=== PATIENT | female | born 1960 | race Two or more races ===

== ENCOUNTER 2016-12-18 20:56 | Emergency (ER) | payer SELFPAY ==
[~2016-12-18] VITALS: Ht 162.6 cm; Wt 72.6 kg
[2016-12-18 21:43] VITALS: BP 155/98
== END 2016-12-19 00:27 | disposition left against medical advice (07) ==
LOC: ER 20:56
DX: R06.02 Shortness of breath (principal); Z53.21 Procedure and treatment not carried out due to patient leaving prior to being seen by health care provider

== ENCOUNTER 2017-05-24 01:22 | Inpatient (IN) | payer MEDICAID ==
[~2017-05-24] VITALS: Ht 157.5 cm; Wt 74.7 kg
[2017-05-24 01:55] LABS: Basophils # (auto) 0.1 uL; Basophils % (auto) 0.9 % (0.0-2.0); Eosinophils # (auto) 0.8 uL; Eosinophils % (auto) 11.8 % (0.0-7.0); Hematocrit 39.4 % (36.0-46.0); Hemoglobin 13.3 g/dL (12.2-16.2); Lymphocytes # (auto) 1.3 uL; Lymphocytes % (auto) 19.6 % (10.0-50.0); Mean Corpuscular Hemoglobin 33.9 pg (28.0-32.0); Mean Corpuscular Hgb Conc. 33.6 g/dL (32.0-36.0); Mean Corpuscular Volume 100.8 fL (80.0-100.0); Monocytes # (auto) 0.5 uL; Monocytes % (auto) 7.1 % (0.0-12.0); Neutrophils % (auto) 60.6 % (37.0-80.0); Nucleated Red Blood Cells % 0.1 %; Platelet Count (auto) 291 10^3/uL (140-450); Red Blood Cells 3.91 10^6/uL (4.0-5.20); Red Cell Distribution Width 15.9 % (11.8-14.3); White Blood Cell 6.6 10^3/uL (4.4-10.8)
[2017-05-24] MEDS ORDERED: methylPREDNISolone SOD SUCC 125 MG/2 ML VL IV ONE (02:00)
[2017-05-24] MEDS ORDERED: IPRATROPIUM BROM 0.5 MG/2.5ML INH SOL NEB ONE (02:00)
[2017-05-24] MEDS ORDERED: ALBUTEROL SULF 2.5 MG/0.5ML(0.5%) NEB SOLN NEB ONE (02:00)
[2017-05-24] MEDS ORDERED: TERBUTALINE SULFATE 1 MG/ML 1ML VIAL SC ONE (02:00)
[2017-05-24 02:13] LABS: Alanine Aminotransferase 22 U/L (13-56); Albumin 3.6 g/dL (3.4-5.0); Anion Gap 11 (5-15); Aspartate Aminotransferase 26 U/L (15-37); BUN/Creatinine Ratio 12.3; Blood Urea Nitrogen 17 mg/dL (7-18); Calcium 8.8 mg/dL (8.5-10.1); Carbon Dioxide 24 mmol/L (21-32); Chloride 105 mmol/L (98-107); GFR African American 51 mL/min; GFR Non-African American 42 mL/min; Glucose 230 mg/dL (74-106); Magnesium 2.1 mg/dL (1.6-2.6); Potassium 3.3 mmol/L (3.5-5.1); Sodium 140 mmol/L (136-145)
[2017-05-24 02:17] LABS: Alkaline Phosphatase 109 U/L (45-117); Bilirubin, Total 0.6 mg/dL (0.2-1.0); Total Protein 7.5 g/dL (6.4-8.2)
[2017-05-24] MEDS ORDERED: POTASSIUM CHL 10% (20 MEQ/15ML) 15ml ORAL SOLN PO ONE (05:15)
[2017-05-24] MEDS ORDERED: NITROGLYCERIN 0.4 MG SL TAB SL PRN (06:15)
[2017-05-24] MEDS ORDERED: TEMAZEPAM 15 MG CAP PO PRN (06:15)
[2017-05-24] MEDS ORDERED: MORPHINE SULFATE 8mg/ml INJ SDV IV PRN (06:15)
[2017-05-24] MEDS ORDERED: ACETAMINOPHEN 325 MG TAB PO PRN (06:15)
[2017-05-24] MEDS ORDERED: ONDANSETRON HCL 4 MG/2 ML VIAL IV PRN (06:15)
[2017-05-24] MEDS: LEVOTHYROXINE SODIUM 50 MCG TAB PO SCH (07:21)
[2017-05-24] MEDS: FAMOTIDINE 20 MG TAB PO SCH ×2 (10:24→22:01)
[2017-05-24] MEDS: methylPREDNISolone SOD SUCC 125 MG/2 ML VL IV SCH ×2 (10:24→22:02)
[2017-05-24] MEDS: ENOXAPARIN SOD 40 MG/0.4 ML SYRINGE SC SCH (10:24)
[2017-05-24] MEDS: ALBUTEROL SULF 2.5 MG/0.5ML(0.5%) NEB SOLN NEB PRN ×3 (10:41→20:30)
[2017-05-24] MEDS: IPRATROPIUM BROM 0.5 MG/2.5ML INH SOL NEB PRN ×3 (10:41→20:30)
[2017-05-24 10:45] VITALS: BP 160/96
[2017-05-24] MEDS ORDERED: LEVO125T7 PO (13:40)
[2017-05-24 15:05] VITALS: BP 175/93
[2017-05-24 15:11] VITALS: BP 154/99
[2017-05-24] MEDS: cloNIDine HCL 0.1 MG TAB PO PRN (16:52)
[2017-05-24 17:25] VITALS: BP 146/97
[2017-05-24 22:00] VITALS: BP 104/63
[2017-05-24 22:53] VITALS: BP 122/60
[2017-05-25] VITALS (7 sets, daily range): BP systolic 120–150; BP diastolic 80–89
[2017-05-25] MEDS: LEVOTHYROXINE SODIUM 50 MCG TAB PO SCH (05:55)
[2017-05-25] MEDS: ALBUTEROL SULF 2.5 MG/0.5ML(0.5%) NEB SOLN NEB PRN ×3 (06:15→17:53)
[2017-05-25] MEDS: IPRATROPIUM BROM 0.5 MG/2.5ML INH SOL NEB PRN ×3 (06:15→17:53)
[2017-05-25 06:16] LABS: Basophils # (auto) 0.1 uL; Basophils % (auto) 0.5 % (0.0-2.0); Eosinophils # (auto) 0 uL; Hematocrit 42.8 % (36.0-46.0); Hemoglobin 14.4 g/dL (12.2-16.2); Lymphocytes # (auto) 0.7 uL; Lymphocytes % (auto) 3.9 % (10.0-50.0); Mean Corpuscular Hemoglobin 33.7 pg (28.0-32.0); Mean Corpuscular Hgb Conc. 33.7 g/dL (32.0-36.0); Mean Corpuscular Volume 99.8 fL (80.0-100.0); Monocytes # (auto) 0.3 uL; Monocytes % (auto) 1.8 % (0.0-12.0); Neutrophils % (auto) 93.8 % (37.0-80.0); Nucleated Red Blood Cells % 0.1 %; Platelet Count (auto) 328 10^3/uL (140-450); Red Blood Cells 4.29 10^6/uL (4.0-5.20); Red Cell Distribution Width 15.9 % (11.8-14.3); White Blood Cell 17.1 10^3/uL (4.4-10.8)
[2017-05-25 06:19] LABS: Albumin 3.8 g/dL (3.4-5.0); Calcium 9.9 mg/dL (8.5-10.1); Potassium 4.6 mmol/L (3.5-5.1)
[2017-05-25 06:21] LABS: BUN/Creatinine Ratio 12.7
[2017-05-25 06:23] LABS: Bilirubin, Total 0.7 mg/dL (0.2-1.0)
[2017-05-25] MEDS: FAMOTIDINE 20 MG TAB PO SCH ×2 (09:40→21:19)
[2017-05-25] MEDS: methylPREDNISolone SOD SUCC 125 MG/2 ML VL IV SCH ×2 (09:40→21:19)
[2017-05-25] MEDS: ENOXAPARIN SOD 40 MG/0.4 ML SYRINGE SC SCH (09:41)
[2017-05-25] MEDS: ALPRAZolam 0.25 MG TAB PO PRN (18:58)
[2017-05-26] MEDS: cloNIDine HCL 0.1 MG TAB PO PRN (04:14)
[2017-05-26] MEDS: LEVOTHYROXINE SODIUM 50 MCG TAB PO SCH (05:42)
[2017-05-26] MEDS: IPRATROPIUM BROM 0.5 MG/2.5ML INH SOL NEB PRN (07:10)
[2017-05-26] MEDS: ALBUTEROL SULF 2.5 MG/0.5ML(0.5%) NEB SOLN NEB PRN (07:10)
[2017-05-26 09:00] VITALS: BP 142/83
[2017-05-26] MEDS: FAMOTIDINE 20 MG TAB PO SCH (10:21)
[2017-05-26] MEDS: ENOXAPARIN SOD 40 MG/0.4 ML SYRINGE SC SCH (10:21)
[2017-05-26] MEDS: methylPREDNISolone SOD SUCC 125 MG/2 ML VL IV SCH (10:21)
[2017-05-26] MEDS ORDERED: predniSONE 20 MG TAB PO ONE (12:30)
[2017-05-26] MEDS ORDERED: ALBUTEROL SULF 2.5 MG/0.5ML(0.5%) NEB SOLN NEB PRN (12:45)
[2017-05-26 13:00] VITALS: BP 163/91
[2017-05-26] MEDS: ALPRAZolam 0.25 MG TAB PO PRN (13:32)
[2017-05-26 14:36] VITALS: BP 163/91
[2017-05-26] MEDS ORDERED: BUDESONIDE (INHALATION) 0.5 MG/2 ML NEB NEB SCH (22:00)
== END 2017-05-26 16:00 | disposition home or self-care (01) | DRG 141 ==
LOC: EDBD 01:22 → ER 01:25 → TELE 01:26 → TELE-CENTR 13:19
PROVIDERS: ADMIT Nurse Practitioner; ATTEND Internal Medicine
DX: J45.901 Unspecified asthma with (acute) exacerbation (principal); F41.9 Anxiety disorder, unspecified; R06.03 Acute respiratory distress; F15.90 Other stimulant use, unspecified, uncomplicated; Z88.5 Allergy status to narcotic agent; Z87.891 Personal history of nicotine dependence; Z80.0 Family history of malignant neoplasm of digestive organs; Z82.0 Family history of epilepsy and other diseases of the nervous system; Z82.49 Family history of ischemic heart disease and other diseases of the circulatory system; Z83.3 Family history of diabetes mellitus
CPT/HCPCS: 36415; 71045; 80053; 83735; 83880; 84484; 85025; 93005; 94640; 94761; 96372; 96374

== ENCOUNTER 2017-05-27 06:15 | Emergency (ER) | payer MEDICAID ==
[~2017-05-27] VITALS: Ht 157.5 cm; Wt 74.8 kg
[~2017-05-27 06:15] MED LIST: LEVO125T7 PO
[2017-05-27 07:06] LABS: Basophils # (auto) 0 uL; Basophils % (auto) 0.1 % (0.0-2.0); Eosinophils # (auto) 0 uL; Lymphocytes # (auto) 0.6 uL; Mean Corpuscular Volume 101.3 fL (80.0-100.0)
[2017-05-27 07:11] LABS: Hematocrit 43.6 % (36.0-46.0); Hemoglobin 14.6 g/dL (12.2-16.2); Mean Corpuscular Hemoglobin 33.8 pg (28.0-32.0); Mean Corpuscular Hgb Conc. 33.4 g/dL (32.0-36.0); Monocytes # (auto) 0.6 uL; Monocytes % (auto) 5.3 % (0.0-12.0); Neutrophils % (auto) 89.6 % (37.0-80.0); Nucleated Red Blood Cells % 0.1 %; Platelet Count (auto) 324 10^3/uL (140-450); Red Cell Distribution Width 16.9 % (11.8-14.3); White Blood Cell 12.3 10^3/uL (4.4-10.8)
[2017-05-27 07:24] VITALS: BP 156/94
[2017-05-27 07:26] LABS: Alanine Aminotransferase 32 U/L (13-56); Albumin 3.7 g/dL (3.4-5.0); Anion Gap 8 (5-15); Aspartate Aminotransferase 26 U/L (15-37); BUN/Creatinine Ratio 21.2; Blood Urea Nitrogen 22 mg/dL (7-18); Calcium 9.7 mg/dL (8.5-10.1); Carbon Dioxide 29 mmol/L (21-32); Chloride 103 mmol/L (98-107); GFR African American 70 mL/min; GFR Non-African American 58 mL/min; Glucose 112 mg/dL (74-106); Potassium 3.7 mmol/L (3.5-5.1); Sodium 140 mmol/L (136-145)
[2017-05-27 07:31] LABS: Alkaline Phosphatase 111 U/L (45-117); Bilirubin, Total 0.5 mg/dL (0.2-1.0); Total Protein 7.8 g/dL (6.4-8.2)
[2017-05-27 07:49] LABS: Urine Bacteria NONE SEEN /hpf (None Seen); Urine Blood Negative /uL (Negative); Urine Specific Gravity 1.018 (1.001-1.035); Urine WBC <1 /hpf (0 - 5)
[2017-05-27] MEDS ORDERED: cefTRIAXone 1GM/10ml IVPUSH 10 ML IV ONE (08:30)
== END 2017-05-27 09:58 | disposition home or self-care (01) ==
LOC: EDBD 06:15 → ER 06:21
DX: J45.909 Unspecified asthma, uncomplicated (principal); Z87.891 Personal history of nicotine dependence
CPT/HCPCS: 36415; 71045; 80053; 81001; 83880; 84484; 85025; 93005; 96374

== ENCOUNTER 2018-09-29 17:35 | Inpatient (IN) | payer MEDICAID ==
[~2018-09-29] VITALS: Ht 167.6 cm; Wt 88.6 kg
[2018-09-29] MEDS ORDERED: ALBUTEROL SULF 2.5 MG/0.5ML(0.5%) NEB SOLN HHN ONE (18:30)
[2018-09-29] MEDS ORDERED: IPRATROPIUM BROM 0.5 MG/2.5ML INH SOL HHN ONE (18:30)
[2018-09-29] MEDS ORDERED: methylPREDNISolone SOD SUCC 125 MG/2 ML VL IV ONE (18:30)
[2018-09-29 19:18] LABS: Basophils # (auto) 0.1 uL; Basophils % (auto) 0.7 % (0.0-2.0); Eosinophils # (auto) 0.4 uL; Eosinophils % (auto) 4.2 % (0.0-7.0); Hematocrit 40.9 % (36.0-46.0); Hemoglobin 13.9 g/dL (12.2-16.2); Lymphocytes % (auto) 10.3 % (10.0-50.0); Mean Corpuscular Hemoglobin 33.6 pg (28.0-32.0); Mean Corpuscular Hgb Conc. 34.1 g/dL (32.0-36.0); Mean Corpuscular Volume 98.7 fL (80.0-100.0); Monocytes # (auto) 0.6 uL; Neutrophils % (auto) 78.8 % (37.0-80.0); Nucleated Red Blood Cells % 0.1 %; Platelet Count (auto) 324 10^3/uL (140-450); Red Blood Cells 4.15 10^6/uL (4.0-5.20); Red Cell Distribution Width 15.2 % (11.8-14.3); White Blood Cell 10.1 10^3/uL (4.4-10.8)
[2018-09-29 19:34] LABS: Anion Gap 9 (5-15); Blood Urea Nitrogen 15 mg/dL (7-18); Calcium 9.5 mg/dL (8.5-10.1); Carbon Dioxide 24 mmol/L (21-32); Chloride 106 mmol/L (98-107); Glucose 140 mg/dL (74-106); Magnesium 2.2 mg/dL (1.6-2.6); Potassium 3.6 mmol/L (3.5-5.1); Sodium 139 mmol/L (136-145)
[2018-09-29 19:36] LABS: Alanine Aminotransferase 25 U/L (13-56); Aspartate Aminotransferase 28 U/L (15-37); BUN/Creatinine Ratio 10.8; GFR African American 50 mL/min; GFR Non-African American 41 mL/min
[2018-09-29 19:41] LABS: Alkaline Phosphatase 103 U/L (45-117); Total Protein 7.6 g/dL (6.4-8.2)
[2018-09-29] MEDS ORDERED: ALBUTEROL SULF 2.5 MG/0.5ML(0.5%) NEB SOLN NEB ONE (22:45)
[2018-09-29] MEDS ORDERED: IPRATROPIUM BROM 0.5 MG/2.5ML INH SOL NEB ONE (22:45)
[2018-09-30] MEDS ORDERED: ONDANSETRON HCL 4 MG/2 ML VIAL IV PRN (03:45)
[2018-09-30] MEDS ORDERED: TEMAZEPAM 15 MG CAP PO PRN (03:45)
[2018-09-30] MEDS ORDERED: ACETAMINOPHEN 325 MG TAB PO PRN (03:45)
[2018-09-30] MEDS ORDERED: cloNIDine HCL 0.1 MG TAB PO PRN ×2 (03:45→06:15)
[2018-09-30] MEDS ORDERED: MORPHINE SULF INJ 2 MG/ML SYRINGE 1ML IV PRN (03:45)
[2018-09-30] MEDS ORDERED: NITROGLYCERIN 0.4 MG SL TAB SL PRN (03:45)
[2018-09-30] MEDS: IPRATROPIUM BROM 0.5 MG/2.5ML INH SOL NEB SCH ×3 (05:50→18:56)
[2018-09-30] MEDS: ALBUTEROL SULF 2.5 MG/0.5ML(0.5%) NEB SOLN NEB SCH ×3 (05:50→18:56)
[2018-09-30] MEDS: LEVOTHYROXINE SODIUM 50 MCG TAB PO SCH (07:08)
[2018-09-30] MEDS ORDERED: traMADol HCL 50 MG TAB PO PRN (10:45)
[2018-09-30 11:05] LABS: Basophils # (auto) 0 uL; Basophils % (auto) 0.2 % (0.0-2.0); Eosinophils # (auto) 0 uL; Hematocrit 41.8 % (36.0-46.0); Hemoglobin 13.9 g/dL (12.2-16.2); Lymphocytes # (auto) 0.5 uL; Lymphocytes % (auto) 5.7 % (10.0-50.0); Mean Corpuscular Hemoglobin 33.1 pg (28.0-32.0); Mean Corpuscular Hgb Conc. 33.2 g/dL (32.0-36.0); Mean Corpuscular Volume 99.6 fL (80.0-100.0); Monocytes # (auto) 0.1 uL; Monocytes % (auto) 1.2 % (0.0-12.0); Neutrophils # (auto) 8.2 uL; Neutrophils % (auto) 92.9 % (37.0-80.0); Platelet Count (auto) 322 10^3/uL (140-450); White Blood Cell 8.8 10^3/uL (4.4-10.8)
[2018-09-30] MEDS: FAMOTIDINE 20 MG TAB PO SCH ×2 (11:20→22:22)
[2018-09-30 11:32] LABS: BUN/Creatinine Ratio 11.2; Calcium 9.8 mg/dL (8.5-10.1); Potassium 4.3 mmol/L (3.5-5.1)
--- NOTE | 2018-09-30 13:03 | NUR ---
MS admit from [facility] admitted to tele/MS after SBAR received. Patient oriented to CHEY VELAZQUEZ RN primary RN, unit, room, bed, and unit policies regarding patient care and visiting hours. Patient weighed by bedscale and encouraged to call if they need something. All questions and concerns addressed, patient verbalized understanding. Note:
[2018-09-30 13:13] VITALS: BP 164/82
[2018-09-30] MEDS: methylPREDNISolone SOD SUCC 40 MG/ML VL IV SCH ×2 (14:14→22:22)
[2018-09-30 16:43] VITALS: BP 173/105
[2018-09-30] MEDS: BUDESONIDE (INHALATION) 0.5 MG/2 ML NEB NEB SCH (18:56)
--- NOTE | 2018-09-30 20:40 | NUR ---
ROOM SMELLS LIKE CIGARETTE SMOKE NURSE COIN MACHINE COLLECTOR SUPERVISOR NOTIFIED THAT ROOM SMELLS LIKE CIGARETTE SMOKE. PATIENT DENIES SMOKING IN THE ROOM. PATIENT AGREED TO INSPECTION OF HER BELONGINGS. A CIGARETTE THAT HAD BEEN PREVIOUSLY LIGHTED AND A RESISTOR COATER WERE FOUND IN HER SWEATER POCKET AND A BOX OF CIGARETTES IN HER BAG. CHARGE NURSE DAISY WAS NOTIFIED AND CIGARETTES AND RESISTOR COATER WERE REMOVED FROM THE PATIENT ROOM. EDUCATED PATIENT REGARDING HAZARDS OF SMOKING AROUND OXYGEN AND IN HOSPITAL. AND EDUCATED HER REGARDING HOSPITAL POLICY. PATIENT AGREED TO BE COMPLIANT.
[2018-09-30 22:00] VITALS: BP 112/63
[2018-10-01] MEDS: ALBUTEROL SULF 2.5 MG/0.5ML(0.5%) NEB SOLN NEB SCH ×5 (00:27→23:06)
[2018-10-01] MEDS: IPRATROPIUM BROM 0.5 MG/2.5ML INH SOL NEB SCH ×5 (00:28→23:06)
--- NOTE | 2018-10-01 00:30 | NUR ---
REPORT GIVEN BY MANOJ SAEED, PT. AWAKE, ALERT AND ORIENTED, NO C/O PAIN, NO SON. TO CONTINUE PT. CARE.
--- NOTE | 2018-10-01 00:50 | NUR ---
ENDORSED PATIENT CARE TO NURSE SHADY ARANDA.
[2018-10-01 04:37] VITALS: BP 127/67
[2018-10-01] MEDS: methylPREDNISolone SOD SUCC 40 MG/ML VL IV SCH ×3 (05:33→21:10)
[2018-10-01] MEDS: BUDESONIDE (INHALATION) 0.5 MG/2 ML NEB NEB SCH ×2 (05:54→17:49)
[2018-10-01] MEDS: LEVOTHYROXINE SODIUM 50 MCG TAB PO SCH (06:02)
[2018-10-01 06:56] LABS: Basophils # (auto) 0 uL; Eosinophils # (auto) 0 uL; Hematocrit 40.9 % (36.0-46.0); Hemoglobin 13.6 g/dL (12.2-16.2); Lymphocytes # (auto) 0.6 uL; Lymphocytes % (auto) 5.2 % (10.0-50.0); Mean Corpuscular Hemoglobin 33.3 pg (28.0-32.0); Mean Corpuscular Hgb Conc. 33.2 g/dL (32.0-36.0); Mean Corpuscular Volume 100.1 fL (80.0-100.0); Monocytes # (auto) 0.3 uL; Monocytes % (auto) 2.9 % (0.0-12.0); Neutrophils # (auto) 10.6 uL; Neutrophils % (auto) 91.9 % (37.0-80.0); Platelet Count (auto) 318 10^3/uL (140-450); Red Blood Cells 4.09 10^6/uL (4.0-5.20); Red Cell Distribution Width 15.1 % (11.8-14.3); White Blood Cell 11.5 10^3/uL (4.4-10.8)
[2018-10-01 07:13] LABS: Calcium 9.7 mg/dL (8.5-10.1); Potassium 4.2 mmol/L (3.5-5.1)
[2018-10-01 07:17] LABS: BUN/Creatinine Ratio 14.8
[2018-10-01 09:03] VITALS: BP 126/76
[2018-10-01] MEDS: FAMOTIDINE 20 MG TAB PO SCH ×2 (09:32→21:10)
[2018-10-01 13:00] VITALS: BP 139/68
[2018-10-01 17:15] VITALS: BP 128/65
--- NOTE | 2018-10-01 19:30 | NUR ---
Opening shift notes Patient in bed alert and oriented x 4, verbally coherent, able to make needs known. Patient denies pain and discomfort at this time. Plan of care discussed, patient verbalized understanding. All needs attended, will continue to monitor.
[2018-10-01 21:46] VITALS: BP 152/88
[2018-10-02 04:45] VITALS: BP 131/71
[2018-10-02] MEDS: methylPREDNISolone SOD SUCC 40 MG/ML VL IV SCH (06:15)
[2018-10-02] MEDS: LEVOTHYROXINE SODIUM 50 MCG TAB PO SCH (06:17)
[2018-10-02] MEDS: ALBUTEROL SULF 2.5 MG/0.5ML(0.5%) NEB SOLN NEB SCH (06:28)
[2018-10-02] MEDS: IPRATROPIUM BROM 0.5 MG/2.5ML INH SOL NEB SCH (06:28)
[2018-10-02 09:09] VITALS: BP 136/69
[2018-10-02 10:22] VITALS: BP 154/98
[2018-10-02] MEDS: FAMOTIDINE 20 MG TAB PO SCH (10:26)
== END 2018-10-02 11:40 | disposition home or self-care (01) | DRG 140 ==
LOC: EDBD 17:35 → ER 17:35 → TELE 17:36 → TELE-CENTR 09-30 13:07 → CENTRAL 09-30 13:08
PROVIDERS: ADMIT Nurse Practitioner; ATTEND Internal Medicine
DX: J44.1 Chronic obstructive pulmonary disease with (acute) exacerbation (principal); J96.21 Acute and chronic respiratory failure with hypoxia; N18.3 Chronic kidney disease, stage 3 (moderate); E66.9 Obesity, unspecified; E03.9 Hypothyroidism, unspecified; J98.4 Other disorders of lung; I12.9 Hypertensive chronic kidney disease with stage 1 through stage 4 chronic kidney disease, or unspecified chronic kidney disease; F15.10 Other stimulant abuse, uncomplicated; F17.210 Nicotine dependence, cigarettes, uncomplicated; Z82.0 Family history of epilepsy and other diseases of the nervous system; Z82.49 Family history of ischemic heart disease and other diseases of the circulatory system; Z83.3 Family history of diabetes mellitus; Z68.31 Body mass index [BMI] 31.0-31.9, adult; Z88.5 Allergy status to narcotic agent
CPT/HCPCS: 36415; 36600; 71046; 80048; 80053; 82805; 83735; 83880; 84484; 85025; 93005; 94640; 94761; 96374; 96375; G0378

== ENCOUNTER 2018-10-30 13:31 | Inpatient (IN) | payer MEDICAID ==
[~2018-10-30] VITALS: Ht 162.6 cm; Wt 90.0 kg
[~2018-10-30 13:31] MED LIST changes: +DOXYCYCLINE 100MG/250ML 250 ML IV SCH
[2018-10-30 14:57] LABS: Basophils # (auto) 0.1 uL; Basophils % (auto) 1.5 % (0.0-2.0); Eosinophils # (auto) 0.8 uL; Eosinophils % (auto) 13.4 % (0.0-7.0); Hematocrit 38.2 % (36.0-46.0); Hemoglobin 12.8 g/dL (12.2-16.2); Lymphocytes # (auto) 1.1 uL; Lymphocytes % (auto) 19.6 % (10.0-50.0); Mean Corpuscular Hemoglobin 33.2 pg (28.0-32.0); Mean Corpuscular Hgb Conc. 33.4 g/dL (32.0-36.0); Mean Corpuscular Volume 99.3 fL (80.0-100.0); Monocytes # (auto) 0.6 uL; Monocytes % (auto) 9.8 % (0.0-12.0); Neutrophils # (auto) 3.2 uL; Neutrophils % (auto) 55.7 % (37.0-80.0); Platelet Count (auto) 311 10^3/uL (140-450); Red Blood Cells 3.85 10^6/uL (4.0-5.20); Red Cell Distribution Width 15.3 % (11.8-14.3); White Blood Cell 5.8 10^3/uL (4.4-10.8)
[2018-10-30 15:18] LABS: Alanine Aminotransferase 17 U/L (13-56); Albumin 3.5 g/dL (3.4-5.0); Anion Gap 6 (5-15); Aspartate Aminotransferase 17 U/L (15-37); BUN/Creatinine Ratio 10.8; Blood Urea Nitrogen 12 mg/dL (7-18); Calcium 8.8 mg/dL (8.5-10.1); Carbon Dioxide 26 mmol/L (21-32); Chloride 108 mmol/L (98-107); GFR African American 64 mL/min; GFR Non-African American 53 mL/min; Glucose 93 mg/dL (74-106); Potassium 4.2 mmol/L (3.5-5.1); Sodium 140 mmol/L (136-145)
[2018-10-30 15:22] LABS: Alkaline Phosphatase 80 U/L (45-117); Bilirubin, Total 0.9 mg/dL (0.2-1.0); Total Protein 6.6 g/dL (6.4-8.2)
[2018-10-30] MEDS ORDERED: IPRATROPIUM BROM 0.5 MG/2.5ML INH SOL NEB ONE (16:00)
[2018-10-30] MEDS ORDERED: ALBUTEROL SULF 2.5 MG/0.5ML(0.5%) NEB SOLN NEB ONE ×2 (16:00→18:30)
[2018-10-30] MEDS ORDERED: methylPREDNISolone SOD SUCC 125 MG/2 ML VL IV ONE (16:00)
[2018-10-30 16:12] LABS: Urine Bacteria NONE SEEN /hpf (None Seen); Urine Blood Negative /uL (Negative); Urine Mucus FEW (None Seen); Urine Specific Gravity 1.019 (1.001-1.035); Urine WBC 1 /hpf (0 - 5)
[2018-10-30] MEDS ORDERED: cefTRIAXone 1GM/50ML D5W 50 ML IV ONE ×2 (18:30→18:47)
[2018-10-30] MEDS ORDERED: ACETAMINOPHEN 500 MG TAB PO PRN (18:45)
[2018-10-30] MEDS ORDERED: ALBUTEROL SULF 2.5 MG/0.5ML(0.5%) NEB SOLN NEB PRN (18:45)
[2018-10-30] MEDS ORDERED: MORPHINE SULF INJ 2 MG/ML SYRINGE 1ML IV PRN (18:45)
[2018-10-30] MEDS ORDERED: NITROGLYCERIN 0.4 MG SL TAB SL PRN (18:45)
[2018-10-30] MEDS ORDERED: traMADol HCL 50 MG TAB PO PRN (18:45)
[2018-10-30] MEDS ORDERED: TEMAZEPAM 15 MG CAP PO PRN (18:45)
[2018-10-30] MEDS ORDERED: PROMETHAZINE HCL 25 MG/ML 1ML IV PRN (18:45)
[2018-10-30] MEDS ORDERED: ALBUTEROL SULF 2.5 MG/0.5ML(0.5%) NEB SOLN ONE (18:45)
[2018-10-30] MEDS ORDERED: DOXYCYCLINE 100MG/250ML 250 ML IV SCH (18:45)
[2018-10-30] MEDS ORDERED: LACTULOSE 20Gm/30ML SOLN PO PRN (18:45)
[2018-10-30 19:35] VITALS: BP 161/101
--- NOTE | 2018-10-30 19:40 | NUR ---
Telemetry admit from [facility] admitted to Telemetry unit. Patient oriented to KYRIE LIZAMA OCA, primary RN, unit, room, bed, and unit policies regarding patient care and visiting hours. Patient now on continuous telemetry monitoring, tele box #55 and telemetry reading on arrival to unit is sinus rhythm 90. Patient placed on bedside oxygen, weighed by bedscale and encouraged to call if they need something. All questions and concerns addressed, patient verbalized understanding. Bed in lowest locked position, call light within reach, side rails up x2, fall precautions in place. Will continue to monitor Q1hr and PRN.
--- NOTE | 2018-10-30 20:00 | NUR ---
Hospitalist paged ANN Tovar called regarding high BP 161/101 and a request for a diet order. Waiting for call back. Continue care.
[2018-10-30 20:01] VITALS: BP 161/101
[2018-10-30] MEDS ORDERED: CHOL20007 PO (20:08)
[2018-10-30] MEDS ORDERED: ALBUAER3 IN (20:09)
[2018-10-30] MEDS: SODIUM CHLORIDE 0.9% 1,000 ML IV SCH (20:13)
[2018-10-30] MEDS: DOXYCYCLINE 100MG/250ML 250 ML IV SCH (20:23)
[2018-10-30 20:26] VITALS: BP 161/101
--- NOTE | 2018-10-30 20:40 | NUR ---
Hospitalist returned call ANN Tovar returned call, updated on patient status and reason for call, new orders received for a regular diet. No new orders for BP meds as patient denies any history of high blood pressure, just continue to monitor. Will continue care.
[2018-10-30] MEDS: methylPREDNISolone SOD SUCC 40 MG/ML VL IV SCH (23:50)
[2018-10-31] MEDS: ALBUTEROL SULF 2.5 MG/0.5ML(0.5%) NEB SOLN NEB SCH ×4 (00:30→18:26)
[2018-10-31] MEDS: IPRATROPIUM BROM 0.5 MG/2.5ML INH SOL NEB SCH ×4 (00:31→18:26)
--- NOTE | 2018-10-31 04:37 | NUR ---
Received patient from Seema ARANDA, CASSANDRAAR received. Patient is resting in bed, no complaints of pain, distress, or SOB.
[2018-10-31 05:38] VITALS: BP 136/75
[2018-10-31] MEDS: methylPREDNISolone SOD SUCC 40 MG/ML VL IV SCH ×4 (06:01→23:50)
[2018-10-31] MEDS: LEVOTHYROXINE SODIUM 50 MCG TAB PO SCH (06:01)
--- NOTE | 2018-10-31 07:20 | NUR ---
PT AWAKE, ALERT, ORIENTED x4, COOPERATIVE OF CARE. DENIES PAIN AT MOMENT. PT CURRENTLY ON 3LNC, DENIES CP, SOB, PALPITATIONS. IV PATENT AND INFUSING WELL TO LAC#20. BED LOCKED AND IN LOWEST POSITION, CALL LIGHT WITHIN REACH. WILL CONTINUE TO MONITOR.
[2018-10-31 08:00] VITALS: BP 147/80
[2018-10-31] MEDS: DOXYCYCLINE 100MG/250ML 250 ML IV SCH ×2 (08:58→20:47)
[2018-10-31] MEDS: ENOXAPARIN SOD 40 MG/0.4 ML SYRINGE SC SCH (08:58)
[2018-10-31] MEDS: PANTOPRAZOLE 40 MG TAB PO SCH (08:58)
[2018-10-31] MEDS: SODIUM CHLORIDE 0.9% 1,000 ML IV SCH ×2 (09:05→21:14)
--- NOTE | 2018-10-31 12:50 | NUR ---
DR. ANDINO IN TO SEE PT. DISCUSSING PLAN OF CARE. PT IN AGREEMENT WITH PLAN.
[2018-10-31 13:00] VITALS: BP 154/89
[2018-10-31 16:00] VITALS: BP 127/68
--- NOTE | 2018-10-31 19:30 | NUR ---
Opening Shift Note Assumed care of patient, awake and alert x4. No S/S of distress/SOB or pain. Bed is in lowest position, side rails up x2, brakes are locked, call light is within reach. Instructed on POC and to call for assist PRN. All questions and concerns answered, will continue to monitor for changes Q1hr and PRN.
--- NOTE | 2018-10-31 21:20 | NUR ---
IV removal from LAC due to leaking IV DC'd with clean sterile technique, catheter fully intact. Pressure dressing applied to site. Patient tolerated well.
--- NOTE | 2018-10-31 21:25 | NUR ---
IV insertion IV access obtained, via clean sterile technique by inserting 22 gauge catheter at th left hand after 1 attempt(s). IV secured properly. No trauma to site. Patient tolerated well.
[2018-10-31 23:54] VITALS: BP 151/92
[2018-11-01] MEDS: IPRATROPIUM BROM 0.5 MG/2.5ML INH SOL NEB SCH ×3 (00:21→12:05)
[2018-11-01] MEDS: ALBUTEROL SULF 2.5 MG/0.5ML(0.5%) NEB SOLN NEB SCH ×3 (00:21→12:05)
[2018-11-01 05:07] VITALS: BP 143/86
[2018-11-01] MEDS: methylPREDNISolone SOD SUCC 40 MG/ML VL IV SCH ×2 (05:42→11:53)
[2018-11-01] MEDS: LEVOTHYROXINE SODIUM 50 MCG TAB PO SCH (06:13)
[2018-11-01 06:15] LABS: Basophils # (auto) 0 uL; Eosinophils # (auto) 0 uL; Hematocrit 40.6 % (36.0-46.0); Hemoglobin 13.1 g/dL (12.2-16.2); Lymphocytes # (auto) 0.5 uL; Lymphocytes % (auto) 3.3 % (10.0-50.0); Mean Corpuscular Hemoglobin 32.2 pg (28.0-32.0); Mean Corpuscular Hgb Conc. 32.3 g/dL (32.0-36.0); Mean Corpuscular Volume 99.6 fL (80.0-100.0); Monocytes # (auto) 0.4 uL; Monocytes % (auto) 2.6 % (0.0-12.0); Neutrophils # (auto) 15.3 uL; Neutrophils % (auto) 94.1 % (37.0-80.0); Nucleated Red Blood Cells % 0.1 %; Platelet Count (auto) 339 10^3/uL (140-450); Red Blood Cells 4.08 10^6/uL (4.0-5.20); White Blood Cell 16.3 10^3/uL (4.4-10.8)
[2018-11-01 06:33] LABS: Anion Gap 6 (5-15); BUN/Creatinine Ratio 17.7; Blood Urea Nitrogen 20 mg/dL (7-18); Calcium 9.1 mg/dL (8.5-10.1); Carbon Dioxide 24 mmol/L (21-32); Chloride 110 mmol/L (98-107); GFR African American 63 mL/min; GFR Non-African American 52 mL/min; Glucose 140 mg/dL (74-106); Potassium 4.3 mmol/L (3.5-5.1); Sodium 140 mmol/L (136-145)
--- NOTE | 2018-11-01 07:10 | NUR ---
PT AWAKE, ALERT, ORIENTEDx4 COOPERATIVE OF CARE, DENIES DISCOMFORT AT MOMENT. PT ON 3LNC. DENIES CP, SOB. IV INFUSING WELL TO LEFT HAND. BED LOCKED AND IN LOWEST POSITION, CALL LIGHT WITHIN REACH.
[2018-11-01 09:00] VITALS: BP 160/87
[2018-11-01] MEDS: ENOXAPARIN SOD 40 MG/0.4 ML SYRINGE SC SCH (09:29)
[2018-11-01] MEDS: PANTOPRAZOLE 40 MG TAB PO SCH (09:29)
[2018-11-01] MEDS: DOXYCYCLINE 100MG/250ML 250 ML IV SCH (09:29)
[2018-11-01] MEDS: SODIUM CHLORIDE 0.9% 1,000 ML IV SCH (09:30)
[2018-11-01] MEDS ORDERED: amLODIPine BESYLATE 5 MG TAB PO SCH (10:00)
--- NOTE | 2018-11-01 10:00 | NUR ---
DR. ANDINO AT BEDSIDE, EVALUATING PT. MADE AWARE OF BP 163/104 MD WILL ORDER BP MEDICATIONS.
[2018-11-01] MEDS ORDERED: cloNIDine HCL 0.1 MG TAB PO PRN (10:15)
[2018-11-01 12:03] VITALS: BP 133/79
[2018-11-01 13:00] VITALS: BP 133/79
[2018-11-01 14:00] VITALS: BP 133/79
--- NOTE | 2018-11-01 14:57 | NUR ---
DISCHARGE INSTRUCTIONS GIVEN TO PT. PT VERBALIZED UNDERSTANDING FOR FOLLOW UP APPOINTMENT WITH PRIMARY CARE PROVIDER AND PRESCRIPTION ORDERS. EDUCATIONAL MATERIAL PROVIDED ON NEW PRESCRIPTION ORDERS, QUESTIONS AND CONCERNS ADDRESSED. IV CATHETER DC'D, CATHETER INTACT NO PHLEBITIS. TELE BOX REMOVED AND RETURNED TO MONITORING DEPT. PT AWAITING TRANSPORTATION AT MOMENT. INSTRUCTED TO CALL WHEN TRANSPORTATION ARRIVES.
--- NOTE | 2018-11-01 15:21 | NUR ---
PT SAFELY ESCORTED OUT OF UNIT VIA WHEELCHAIR. ACCOMPANIED BY FAMILY MEMBER.
== END 2018-11-01 17:09 | disposition home or self-care (01) | DRG 140 ==
LOC: ER 13:31 → EDBD 13:31 → TELE 13:32 → ER 17:49 → TELE-WESTW 19:40
PROVIDERS: ADMIT Internal Medicine; ATTEND Internal Medicine
DX: J44.1 Chronic obstructive pulmonary disease with (acute) exacerbation (principal); J18.9 Pneumonia, unspecified organism; Z99.81 Dependence on supplemental oxygen; J45.901 Unspecified asthma with (acute) exacerbation; J44.0 Chronic obstructive pulmonary disease with (acute) lower respiratory infection; N18.3 Chronic kidney disease, stage 3 (moderate); J20.9 Acute bronchitis, unspecified; R06.03 Acute respiratory distress; E03.9 Hypothyroidism, unspecified; I10 Essential (primary) hypertension; I12.9 Hypertensive chronic kidney disease with stage 1 through stage 4 chronic kidney disease, or unspecified chronic kidney disease; F17.210 Nicotine dependence, cigarettes, uncomplicated; Z82.0 Family history of epilepsy and other diseases of the nervous system; Z91.14 Patient's other noncompliance with medication regimen; Z88.5 Allergy status to narcotic agent
CPT/HCPCS: 36415; 71045; 80048; 80053; 81001; 83880; 84443; 84484; 85025; 87070; 87081; 87205; 93005; 94640; G0378; J0696; J3490

== ENCOUNTER 2019-08-08 07:34 | Inpatient (IN) | payer MEDICAID ==
[~2019-08-08] VITALS: Ht 167.6 cm; Wt 77.2 kg
[2019-08-08] VITALS (32 sets, daily range): BP systolic 97–142; BP diastolic 55–93
[~2019-08-08 07:34] MED LIST changes: +ALBUAER3 IN; +CHOL20007 PO; -DOXYCYCLINE 100MG/250ML 250 ML IV SCH
[2019-08-08] MEDS ORDERED: ALBUTEROL SULF 2.5 MG/0.5ML(0.5%) NEB SOLN ONE (07:54)
[2019-08-08] MEDS ORDERED: methylPREDNISolone SOD SUCC 125 MG/2 ML VL ONE ×2 (07:54→07:56)
[2019-08-08] MEDS ORDERED: LORazepam 2MG/ML-1ML VIAL ONE (08:10)
[2019-08-08] MEDS ORDERED: methylPREDNISolone SOD SUCC 125 MG/2 ML VL IV ONE ×2 (08:15→14:30)
[2019-08-08] MEDS ORDERED: LORazepam 2MG/ML-1ML VIAL IV ONE ×2 (08:15)
[2019-08-08 08:28] LABS: Basophils # (auto) 0.1 10 ^3/uL (0-0.2); Basophils % (auto) 0.6 % (0.0-2.0); Eosinophils # (auto) 0.5 10 ^3/uL (0-0.8); Eosinophils % (auto) 5.7 % (0.0-7.0); Hematocrit 44.9 % (36.0-46.0); Hemoglobin 14.6 g/dL (12.2-16.2); Lymphocytes # (auto) 1.8 10 ^3/uL (0.4-5.4); Lymphocytes % (auto) 19.5 % (10.0-50.0); Mean Corpuscular Hemoglobin 33.1 pg (28.0-32.0); Mean Corpuscular Hgb Conc. 32.6 g/dL (32.0-36.0); Mean Corpuscular Volume 101.5 fL (80.0-100.0); Monocytes # (auto) 0.5 10 ^3/uL (0-1.3); Monocytes % (auto) 5.7 % (0.0-12.0); Neutrophils # (auto) 6.5 10 ^3/uL (1.6-8.6); Neutrophils % (auto) 68.5 % (37.0-80.0); Platelet Count (auto) 332 10^3/uL (140-450); Red Blood Cells 4.43 10^6/uL (4.0-5.20); Red Cell Distribution Width 14.8 % (11.8-14.3); White Blood Cell 9.4 10^3/uL (4.4-10.8)
[2019-08-08] MEDS ORDERED: MIDAZOLAM HCL 5 MG/ML-1ML VIAL IV ONE (08:30)
[2019-08-08] MEDS ORDERED: fentaNYL CITRATE 100 MCG/2 ML VL ONE (08:31)
[2019-08-08] MEDS ORDERED: fentaNYL CITRATE 100 MCG/2 ML VL IV ONE (08:31)
[2019-08-08] MEDS: MIDAZOLAM DRIP 50 mg/50mL 50 ML IV SCH ×2 (08:35→16:45)
[2019-08-08] MEDS: fentaNYL Drip 2500mCg/250mlNS 250 ML IV SCH (09:00)
[2019-08-08 09:03] LABS: Anion Gap 7 (5-15); Blood Urea Nitrogen 14 mg/dL (7-18); Carbon Dioxide 29 mmol/L (21-32); Chloride 102 mmol/L (98-107); Glucose 273 mg/dL (74-106); Potassium 3.9 mmol/L (3.5-5.1); Sodium 138 mmol/L (136-145)
[2019-08-08 09:07] LABS: Alanine Aminotransferase 27 U/L (13-56); Alkaline Phosphatase 130 U/L (45-117); Aspartate Aminotransferase 38 U/L (15-37); BUN/Creatinine Ratio 9.6; Bilirubin, Total 0.7 mg/dL (0.2-1.0); GFR African American 47 mL/min; GFR Non-African American 39 mL/min; Total Protein 7.9 g/dL (6.4-8.2)
[2019-08-08 09:16] LABS: Blood Alcohol < 3.0 mg/dL (0-5)
[2019-08-08] MEDS: ALBUTEROL SULF 2.5 MG/0.5ML(0.5%) NEB SOLN NEB SCH ×4 (10:00→21:26)
[2019-08-08] MEDS: IPRATROPIUM BROM 0.5 MG/2.5ML INH SOL NEB SCH ×4 (10:00→21:25)
[2019-08-08] MEDS: NOREPINEPHRINE 8 MG/250ML KIT 250 ML IV SCH (10:43)
[2019-08-08] MEDS ORDERED: PROPOFOL 100 ML IV ONE (13:00)
[2019-08-08] MEDS: PROPOFOL 100 ML IV SCH (13:18)
[2019-08-08] MEDS ORDERED: NITROGLYCERIN 0.4 MG SL TAB SL PRN (13:30)
[2019-08-08] MEDS ORDERED: SODIUM CHLORIDE 0.9% 1,000 ML IV ONE (13:30)
[2019-08-08] MEDS ORDERED: MORPHINE SULF INJ 2 MG/ML SYRINGE 1ML IV PRN (13:30)
[2019-08-08] MEDS ORDERED: DEXTROSE (50%) 50ML SYRG IV PRN (14:00)
[2019-08-08] MEDS: FAMOTIDINE (10MG/ML) 2ML VL IV SCH (14:15)
[2019-08-08 14:16] LABS: Urine Amorphous Crystal FEW /hpf (None Seen); Urine Bacteria FEW /hpf (None Seen); Urine Blood 2+ /uL (Negative); Urine Mucus FEW (None Seen); Urine Specific Gravity 1.021 (1.001-1.035); Urine WBC 20 /hpf (0 - 5); Urine WBC Clumps PRESENT /hpf (None Seen)
[2019-08-08] MEDS ORDERED: ALBUTEROL SULF 2.5 MG/0.5ML(0.5%) NEB SOLN NEB ONE ×2 (14:30→14:45)
[2019-08-08 14:31] LABS: Alcohol, Urine < 3.0 mg/dL (0-10); Amphetamine Screen, Urine POSITIVE (NEGATIVE); Barbiturate Scree,Urine NEGATIVE (NEGATIVE); Benzodiazephine Screen, Urine POSITIVE (NEGATIVE); Cannabinoid Screen, Urine NEGATIVE (NEGATIVE); Cocaine Screen, Urine NEGATIVE (NEGATIVE); Opiate Scree,Urine NEGATIVE (NEGATIVE); Phencyclidine Screen, Urine NEGATIVE (NEGATIVE)
--- NOTE | 2019-08-08 17:45 | NUR ---
RECEIVED PT FROM ED VIA BED. PT ON VENTILATOR, RESULTS FOR COVID CAME BACK NEGATIVE. OGT CONNECTED TO SUCTION, PT DRAINED 400 ML OF CLEAR PALE YELLOW DRAINAGE, ABDOMEN BECAME LESS DISTENDED. PT'S ETT WAS KINKED AND PT HAS HAVING TROUBLE OXYGENATING, GETTING ADEQUATE TV. RT HAD TO USE AMBU BAG FOR COUPLE MIN WHEN PT FIRST ARRIVE IN THE UNIT. PT WELL SEDATED ON PROPOFOL AT 10 TONEY/KG/MIN , FENTANYL AT 100 DIONY/HR AND SUPPORTED WITH LEVOPHED FOR HYPOTENSION. SBP CURRENTLY IN THE 140- 130'S THEREFORE LEVO IS BEING TITRATED OFF. REFER TO IV FLOW- SHEET FOR TITRATION. PT HAS TWO 20 GA. IV BOTH 20 # ON BOTH AC. ALL GTT'S ARE INFUSING VIA LT AC. RT AC IH CURRENTLY SALINE LOCK. PT'S BP CUFF ON THAT ARM. IV HAS BLOOD BACK FLOWING INTO IV. PT'S SKIN INTACT. ORAL CARE RENDERED, MRSA SWAB COLLECTED, SCD'S APPLIED TO BLE DIRECTED PER MD ORDERS.
[2019-08-08] MEDS ORDERED: ALBUTEROL SULF 2.5 MG/0.5ML(0.5%) NEB SOLN NEB SCH (18:00)
[2019-08-08] MEDS ORDERED: IPRATROPIUM BROM 0.5 MG/2.5ML INH SOL NEB SCH (18:00)
[2019-08-08] MEDS: methylPREDNISolone SOD SUCC 40 MG/ML VL IV SCH (18:49)
[2019-08-08] MEDS: ACCU-CHEK COMFORT CURVE STRIP VI SCH (18:52)
[2019-08-08] MEDS: InsuLIN REG 1unit/0.01ml Soln (100units/ml) SC SCH (18:55)
--- NOTE | 2019-08-08 19:00 | NUR ---
Opening shift note: Primary RN received report on patient. Patient intubated ETT 8.0/26 CM @ LL, Vent settings: AC 24 TV 450, FIO2 100%, PEEP 5, O2 SAT 100%, bilateral lung sounds coarse and diminished. IV sites to right and left AC 20G. IV to left AC infusing, Levo @ 8, Propofol @ 10, Fentanyl @ 100 and Versed @ 15. NGT to right nare connected to LIS, placement checked. Arcos catheter draining via gravity with yellow urine. Safety precautions in place. Will continue to monitor.
--- NOTE | 2019-08-08 19:30 | NUR ---
REPORT GIVEN TO ONCOMING RN MONI. I ENDORSED [id number]% OF ADMISSION PAPER WORK. CHALLENGE ACCEPTED.
--- NOTE | 2019-08-08 20:30 | NUR ---
Family: RN called phone number on patient's chart. Significant other "Dawson" answered the phone and was able to verify patient's date of and home address. Admission questions were answered by significant other and update on patient status was given. All questions and concerns were addressed by RN. Per significant other, he will look for all of the patient's current home medications she is taking and call hospital staff tomorrow to give us the list of medications the patient takes at home.
[2019-08-09] VITALS (105 sets, daily range): BP systolic 98–135; BP diastolic 59–82
[2019-08-09] MEDS: ALBUTEROL SULF 2.5 MG/0.5ML(0.5%) NEB SOLN NEB PRN (00:31)
[2019-08-09] MEDS: fentaNYL Drip 2500mCg/250mlNS 250 ML IV SCH (01:30)
[2019-08-09] MEDS: FAMOTIDINE (10MG/ML) 2ML VL IV SCH ×2 (01:42→16:17)
[2019-08-09] MEDS: ALBUTEROL SULF 2.5 MG/0.5ML(0.5%) NEB SOLN NEB SCH ×6 (02:23→23:12)
[2019-08-09] MEDS: IPRATROPIUM BROM 0.5 MG/2.5ML INH SOL NEB SCH ×6 (02:23→23:12)
[2019-08-09 04:07] LABS: Eosinophils # (auto) 0 10 ^3/uL (0-0.8); Monocytes # (auto) 0.6 10 ^3/uL (0-1.3); Red Cell Distribution Width 14.8 % (11.8-14.3)
[2019-08-09 04:08] LABS: Basophils # (auto) 0.1 10 ^3/uL (0-0.2); Basophils % (auto) 0.6 % (0.0-2.0); Hematocrit 40.8 % (36.0-46.0); Lymphocytes # (auto) 0.6 10 ^3/uL (0.4-5.4); Lymphocytes % (auto) 4.6 % (10.0-50.0); Mean Corpuscular Hemoglobin 33.2 pg (28.0-32.0); Mean Corpuscular Hgb Conc. 31.9 g/dL (32.0-36.0); Monocytes % (auto) 4.5 % (0.0-12.0); Neutrophils # (auto) 12.6 10 ^3/uL (1.6-8.6); Neutrophils % (auto) 90.3 % (37.0-80.0); Platelet Count (auto) 282 10^3/uL (140-450); Red Blood Cells 3.93 10^6/uL (4.0-5.20)
[2019-08-09 04:26] LABS: Albumin 3.2 g/dL (3.4-5.0); Calcium 7.9 mg/dL (8.5-10.1); Potassium 4.5 mmol/L (3.5-5.1)
[2019-08-09 04:28] LABS: BUN/Creatinine Ratio 10.2
[2019-08-09 04:31] LABS: Bilirubin, Total 0.5 mg/dL (0.2-1.0); Total Protein 7.1 g/dL (6.4-8.2)
[2019-08-09] MEDS: methylPREDNISolone SOD SUCC 40 MG/ML VL IV SCH ×5 (05:32→23:13)
[2019-08-09] MEDS: ACCU-CHEK COMFORT CURVE STRIP VI SCH ×5 (05:33→23:13)
[2019-08-09] MEDS: InsuLIN REG 1unit/0.01ml Soln (100units/ml) SC SCH ×5 (05:33→23:13)
[2019-08-09] MEDS: MIDAZOLAM DRIP 50 mg/50mL 50 ML IV SCH ×3 (07:00→11:44)
--- NOTE | 2019-08-09 07:30 | NUR ---
REPORT REPORT RECEIVED FROM NIGHT RN. BEDSIDE CHECK DONE. PT RESTING IN BED , WITH EYES CLOSED, SEDATED AND INTUBATED. VSS AND CONTINUE TO MONITOR.
--- NOTE | 2019-08-09 08:25 | NUR ---
ASSESSMENT PT RESTING IN BED WITH EYES CLOSED AND INTUBATED AND SEDATED. PUPILS 1 AND FIXED. NO SPONTANEOUS MOVEMENT NOTED. VENTILATOR SETTINGS OF: 8 FR ETT/ 24 AT THE LIP, TV 450, AC RATE OF 24, 50% FIO2 AND PEEP OF 5. LUNGS WITH INSPIRATORY AND EXPIRATORY WHEEZES NOTED. O2 SAT OF 97%. TELE SR 68. PALPABLE PULSES TO ALL EXTREMITIES. SCDS TO BLE. +1 PITTING EDEMA NOTED TO THE RIGHT ANKLE. ABD SOFT WITH HYPOACTIVE BOWEL SOUNDS. RIGHT NARES NGT WITH + PLACEMENT VERIFIED AND NO RESIDUAL NOTED. HERRON CATHETER DRAINING YELLOW URINE WITH SEDIMENT NOTED. . PT REPOSITIONED FOR COMFORT. SACRUM CLEAR BUT WITH OPTIFOAM IN PLACE PREVENTATIVE. PT WITH IVF AND DRIPS TO PERIPHERAL IV LINES TO THE RAC AND LAC, SITES BENIGN. RAILS UP X4 AND BED IN LOW POSTION FOR PT SAFETY. CONTINUE TO MONITOR.
[2019-08-09] MEDS ORDERED: levoFLOXacin 500MG 100 ML IV SCH (10:00)
--- NOTE | 2019-08-09 10:00 | NUR ---
FIO2 DOWN TO 40% BY JOAQUIN RT. CONTINUE TO MONITOR O2 SATURATION.
[2019-08-09] MEDS: ENOXAPARIN SOD 40 MG/0.4 ML SYRINGE SC SCH (10:36)
--- NOTE | 2019-08-09 11:52 | NUR ---
Consult Consider Glucerna 1.2 at 50 ml/hr per MD approval Est energy needs 8149-0787 kcal (18-20 kcal/kg BW 91.1kg) Est protein needs 55-68g (0.6-0.75g/kg BW 91.1g/kg r/t CKD 3 no HD) Will reassess prn. Addendum: 08/09/19 at [address] Amended: Links added.
--- NOTE | 2019-08-09 12:30 | NUR ---
ACCUCHECK OF 141 AND PT GIVEN 2 UNITS OF REGULAR INSULIN SQ.
[2019-08-09] MEDS: NOREPINEPHRINE 8 MG/250ML KIT 250 ML IV SCH (12:34)
[2019-08-09] MEDS: PROPOFOL 100 ML IV SCH (12:57)
--- NOTE | 2019-08-09 13:00 | NUR ---
MD VISIT PT SEEN AND EXAMINED BY DR RANGEL. UPDATED HIM ON THE PT'S CURRENT CONDITION.
--- NOTE | 2019-08-09 13:10 | NUR ---
SPOKE WITH PT'S SIGNIFICANT OTHER, MONI. HE VERIFIED THAT HE AND THE PT ARE NOT AND ALTHOUGH SHE DOES HAVE CHILDREN, THEY ARE NOT IN TOUCH. SHE HAS NO SIBLINGS AND HER PARENTS ARE . I UPDATED HIM ON THE PT'S CONDITION AND NEED FOR A PICC LINE. TWO DOCTORS WILL SIGN THE CONSENT FOR THE PROCEDURE.
--- NOTE | 2019-08-09 13:30 | NUR ---
GOING TO LUNCH AND PT UNDER THE CARE OF JUS FAY RN, PICC LINE RN, POP, AT THE BEDSIDE.
[2019-08-09] MEDS ORDERED: LIDOCAINE 1% (LOCAL ANESTH.) PF 5ml SDV ID ONE (14:15)
--- NOTE | 2019-08-09 14:27 | NUR ---
PICC line placement Dr Ray and Dr Miller consulted on need for PICC line placement. No family available for consent. Pt intubated and sedated at this time. All risks and benefits discussed prior to procedure and both MDs agreed on PICC line placement. Noted past medical history and allergies with no contraindications. INR and Plt counts within acceptable range. 5 fr PICC line inserted via right basilic vein using [employer] US and Tip Location System. Sterile technique with maximum barrier precautions utilized. Blood return obtained from each of the 3 lumens and each flushed easily with NS using proper technique. PICC secured with Stat-lock; biodisc and occlusive dressing applied. Stat portable chest x-ray obtained for PICC tip placement. *Baseline Arm Circumference 33 cm. Internal length 40 cm. External length 0 cm. PICC lot #[id number] Note:
--- NOTE | 2019-08-09 14:35 | NUR ---
Okay to use PICC line Xray completed and reviewed. Okay to use PICC line. Maura ARANDA notified.
[2019-08-09] MEDS: PIPERACILLIN-TAZOB 3.375GM 100 ML IV SCH ×2 (16:18→21:38)
[2019-08-09] MEDS: BUDESONIDE (INHALATION) 0.5 MG/2 ML NEB NEB SCH (18:08)
--- NOTE | 2019-08-09 18:30 | NUR ---
ACCUCHECK OF 114 AND NO COVERAGE NEEDED.
--- NOTE | 2019-08-09 19:00 | NUR ---
Opening shift note: Primary RN received report on patient. Patient intubated ETT 8.0/26 CM @ LL, Vent settings: AC 24 TV 450, FIO2 35%, PEEP 5, O2 SAT 96%, bilateral lung sounds wheezing and diminished. IV sites to right and left AC 20G's, Right upper arm triple lumen PICC Line. PICC Line infusing, Levo @ 3, Propofol @ 10, Fentanyl @ 75 and Versed @ 12. NGT to right nostril connected to LIS, placement checked. Arcos catheter draining via gravity with yellow urine. Safety precautions in place. Will continue to monitor.
--- NOTE | 2019-08-09 19:30 | NUR ---
REPORT REPORT GIVEN TO MONI HUNT RN.
[2019-08-09] MEDS: SODIUM CHLOR 0.9% PF (SALINE LOCK) 10ML VIAL/SYR IV SCH (21:38)
[2019-08-10] VITALS (106 sets, daily range): BP systolic 90–122; BP diastolic 53–80
[2019-08-10] MEDS: FAMOTIDINE (10MG/ML) 2ML VL IV SCH ×2 (02:00→14:03)
[2019-08-10] MEDS: IPRATROPIUM BROM 0.5 MG/2.5ML INH SOL NEB SCH ×6 (02:12→22:39)
[2019-08-10] MEDS: ALBUTEROL SULF 2.5 MG/0.5ML(0.5%) NEB SOLN NEB SCH ×6 (02:12→22:39)
--- NOTE | 2019-08-10 02:30 | NUR ---
Patient desaturated: RN noted patient to be desaturating in the high 80's. RN provided oral care and endotracheal suctioning but no secretions were noted. RN assessed patient and paged RT. RT at patient bedside and patient's FIO2 had to be increased to 100% to get patient saturating into the 90's again. RN will continue to monitor and assess patient.
[2019-08-10] MEDS: PROPOFOL 100 ML IV SCH ×2 (02:36→16:07)
[2019-08-10] MEDS: fentaNYL Drip 2500mCg/250mlNS 250 ML IV SCH (04:00)
[2019-08-10 04:36] LABS: Basophils # (auto) 0.1 10 ^3/uL (0-0.2); Basophils % (auto) 0.5 % (0.0-2.0); Eosinophils # (auto) 0 10 ^3/uL (0-0.8); Hematocrit 37.4 % (36.0-46.0); Hemoglobin 12.1 g/dL (12.2-16.2); Lymphocytes # (auto) 0.4 10 ^3/uL (0.4-5.4); Lymphocytes % (auto) 3.3 % (10.0-50.0); Mean Corpuscular Hemoglobin 32.8 pg (28.0-32.0); Mean Corpuscular Hgb Conc. 32.3 g/dL (32.0-36.0); Mean Corpuscular Volume 101.5 fL (80.0-100.0); Monocytes # (auto) 0.5 10 ^3/uL (0-1.3); Monocytes % (auto) 3.7 % (0.0-12.0); Neutrophils # (auto) 12.1 10 ^3/uL (1.6-8.6); Neutrophils % (auto) 92.5 % (37.0-80.0); Platelet Count (auto) 277 10^3/uL (140-450); Red Blood Cells 3.69 10^6/uL (4.0-5.20); Red Cell Distribution Width 14.9 % (11.8-14.3)
[2019-08-10 04:49] LABS: Partial Thromboplastin Time 25.6 sec (23.64-32.05)
[2019-08-10 04:56] LABS: Potassium 4.2 mmol/L (3.5-5.1)
[2019-08-10 05:00] LABS: BUN/Creatinine Ratio 12.9; Calcium 8.7 mg/dL (8.5-10.1)
[2019-08-10] MEDS: PIPERACILLIN-TAZOB 3.375GM 100 ML IV SCH ×3 (05:05→22:00)
[2019-08-10] MEDS: methylPREDNISolone SOD SUCC 40 MG/ML VL IV SCH ×3 (05:05→22:00)
[2019-08-10] MEDS: ACCU-CHEK COMFORT CURVE STRIP VI SCH ×3 (05:09→18:30)
[2019-08-10] MEDS: InsuLIN REG 1unit/0.01ml Soln (100units/ml) SC SCH ×3 (05:09→18:30)
[2019-08-10] MEDS: MIDAZOLAM DRIP 50 mg/50mL 50 ML IV SCH ×2 (06:30→14:21)
[2019-08-10] MEDS: LEVOTHYROXINE SODIUM 50 MCG TAB PO SCH (06:30)
--- NOTE | 2019-08-10 07:30 | NUR ---
ASSESSMENT PT RESTING IN BED WITH EYES CLOSED AND MODERATELY SEDATED. ON FENTANYL, DIPRIVAN AND VERSED. ON THE VENTILATOR WITH SETTINGS OF: 8 FR ETT/ 24 AT THE LIP, AC 24, TV 450, 70% FIO2 AND PEEP OF 5. LUNGS WITH INSPIRATORY AND EXPIRATORY WHEEZES NOTED THROUGHOUT. O2 SAT OF 99%. TELE SR 68. PALPABLE PULSES WITH NO EDEMA NOTED. SCDS TO BLE. ABD SOFT WITH HYPOACTIVE BOWEL SOUNDS NOTED. LAST BM UNKNOWN, WAS PRIOR TO ADMISSION.RIGHT NARES NGT WITH +PLACEMENT AND CLAMPED . HERRON CATHETER DRAINING CLEAR YELLOW URINE. TURNED FOR COMFORT TO HER RIGHT SIDE. OPTIFOAM DRESSING IN PLACE TO SACRUM AND SKIN UNDER DRESSING IS CLEAR. CONTINUE TO MONITOR.
--- NOTE | 2019-08-10 08:29 | NUR ---
DECREASED FIO2 TO 50% AT THIS TIME POST AM ABG. SPO2 100% AFTER CHANGE.
[2019-08-10] MEDS: BUDESONIDE (INHALATION) 0.5 MG/2 ML NEB NEB SCH ×2 (09:58→18:06)
[2019-08-10] MEDS: SODIUM CHLOR 0.9% PF (SALINE LOCK) 10ML VIAL/SYR IV SCH ×2 (10:29→22:00)
[2019-08-10] MEDS: ENOXAPARIN SOD 40 MG/0.4 ML SYRINGE SC SCH (10:30)
[2019-08-10] MEDS ORDERED: FUROSEMIDE 20 MG/2 ML VIAL IV ONE (11:00)
[2019-08-10] MEDS ORDERED: Jevity 1.2 Cal/Fiber 1 Liter GT SCH (11:00)
[2019-08-10] MEDS ORDERED: LEVOTHYROXINE SODIUM 100 MCG/5 ML INJ IV ONE (11:00)
--- NOTE | 2019-08-10 12:00 | NUR ---
ACCUCHECK OF 126 AND NO COVERAGE NEEDED.
[2019-08-10] MEDS: NOREPINEPHRINE 8 MG/250ML KIT 250 ML IV SCH (12:48)
--- NOTE | 2019-08-10 17:00 | NUR ---
PER DR DYE, PT TO HAVE CPAP TRIAL IN THE AM WITH PRECEDEX AVAILABLE IF NEEDED. NOTIFIED RT VERNON.
[2019-08-10] MEDS: DexMEDEtomidine 400 MCG in D5W 5% 96 ML IV SCH (19:00)
--- NOTE | 2019-08-10 19:00 | NUR ---
Opening shift note: Primary RN received report on patient. Patient intubated ETT 8.0/26 CM @ LL, Vent settings: AC 24 TV 450, FIO2 40%, PEEP 5, O2 SAT 98%, bilateral lung sounds wheezing and diminished. Right upper arm triple lumen PICC Line. PICC Line infusing, Propofol @ 10, Fentanyl @ 75 and Versed @ 6. NGT to right nostril connected to LIS, placement checked. Arcos catheter draining via gravity with yellow urine. Safety precautions in place. Will continue to monitor.
[2019-08-11] VITALS (103 sets, daily range): BP systolic 62–158; BP diastolic 30–118
[2019-08-11] MEDS: FAMOTIDINE (10MG/ML) 2ML VL IV SCH ×2 (02:06→15:44)
[2019-08-11] MEDS: IPRATROPIUM BROM 0.5 MG/2.5ML INH SOL NEB SCH ×6 (02:55→22:00)
[2019-08-11] MEDS: ALBUTEROL SULF 2.5 MG/0.5ML(0.5%) NEB SOLN NEB SCH ×6 (02:55→22:00)
[2019-08-11 04:25] LABS: Basophils # (auto) 0 10 ^3/uL (0-0.2); Eosinophils # (auto) 0 10 ^3/uL (0-0.8); Hematocrit 35.7 % (36.0-46.0); Hemoglobin 11.9 g/dL (12.2-16.2); Lymphocytes # (auto) 0.3 10 ^3/uL (0.4-5.4); Lymphocytes % (auto) 3.3 % (10.0-50.0); Mean Corpuscular Hemoglobin 33.8 pg (28.0-32.0); Mean Corpuscular Hgb Conc. 33.4 g/dL (32.0-36.0); Monocytes # (auto) 0.4 10 ^3/uL (0-1.3); Neutrophils # (auto) 9.8 10 ^3/uL (1.6-8.6); Neutrophils % (auto) 92.7 % (37.0-80.0); Nucleated Red Blood Cells % 0.1 %; Platelet Count (auto) 237 10^3/uL (140-450); Red Blood Cells 3.53 10^6/uL (4.0-5.20); Red Cell Distribution Width 14.9 % (11.8-14.3); White Blood Cell 10.6 10^3/uL (4.4-10.8)
[2019-08-11 04:45] LABS: Calcium 8.2 mg/dL (8.5-10.1); Potassium 4.1 mmol/L (3.5-5.1)
[2019-08-11 04:48] LABS: BUN/Creatinine Ratio 14.5
[2019-08-11] MEDS: DexMEDEtomidine 400 MCG in D5W 5% 96 ML IV SCH (05:23)
[2019-08-11] MEDS: PIPERACILLIN-TAZOB 3.375GM 100 ML IV SCH ×3 (05:34→21:47)
[2019-08-11] MEDS: methylPREDNISolone SOD SUCC 40 MG/ML VL IV SCH ×3 (05:34→21:47)
[2019-08-11] MEDS: InsuLIN REG 1unit/0.01ml Soln (100units/ml) SC SCH ×5 (05:41→23:43)
[2019-08-11] MEDS: ACCU-CHEK COMFORT CURVE STRIP VI SCH ×5 (05:41→23:43)
[2019-08-11] MEDS: LEVOTHYROXINE SODIUM 50 MCG TAB PO SCH (06:10)
[2019-08-11] MEDS: BUDESONIDE (INHALATION) 0.5 MG/2 ML NEB NEB SCH ×2 (06:32→22:00)
--- NOTE | 2019-08-11 07:20 | NUR ---
FIGHTING VENT Patient is stacking breaths, coughing, and peeking pressures. Starting sedation. RT is bedside.
--- NOTE | 2019-08-11 07:30 | NUR ---
RES ASSESSMENT Patient is continuing to show signs of respiratory discomfort and distress. Starting patient on propofol. RT is bedside giving a breathing treatment. Addendum: 08/11/19 at 1116 by Lisset Singh RN RN RESP
[2019-08-11] MEDS ORDERED: SODIUM CHLORIDE 0.9 % NEB SOLN 3ML NEB ONE (07:48)
--- NOTE | 2019-08-11 08:00 | NUR ---
OPENING Report received from Dawson BRANDON RN. Care initiated and initial assessment complete.
[2019-08-11] MEDS: NOREPINEPHRINE 8 MG/250ML KIT 250 ML IV SCH ×2 (08:05→10:16)
--- NOTE | 2019-08-11 08:05 | NUR ---
LEVOPHED STARTED Patients blood pressures are low dictated in IV spreadsheet. Patient has been started on Levophed at this time.
--- NOTE | 2019-08-11 10:30 | NUR ---
LEVOPHED OFF Patients blood pressure continuing to stabilize.
[2019-08-11] MEDS: fentaNYL Drip 2500mCg/250mlNS 250 ML IV SCH ×2 (11:21→21:13)
[2019-08-11] MEDS: ENOXAPARIN SOD 40 MG/0.4 ML SYRINGE SC SCH (11:21)
[2019-08-11] MEDS: SODIUM CHLOR 0.9% PF (SALINE LOCK) 10ML VIAL/SYR IV SCH ×2 (11:21→21:47)
[2019-08-11] MEDS ORDERED: LEVOTHYROXINE SODIUM 100 MCG/5 ML INJ IV ONE (14:00)
[2019-08-11] MEDS: PROPOFOL 100 ML IV SCH ×2 (15:45→17:01)
--- NOTE | 2019-08-11 15:53 | NUR ---
Nutrition Followup Notes Pt wt is 92.4 kg Pt is sedated, intubated, NPO with no current nutrition support d/t pt is active for CPAP trial. Pt with no noted distress per RN doc. Will continue to monitor PO status, skin status, pertinent labs and weight trends. Will f/u in 2-3 days. Est energy needs 7634-8977 kcal (18-20 kcal/kg BW 91.1kg) Est protein needs 55-68g (0.6-0.75g/kg BW 91.1g/kg r/t CKD 3 no HD) Will reassess prn. LABS: GLUC 132 H, A1c 6.5 wnl, BUN 25 H, CR 1.73 H, GFR 32 L (Stg 3) GI: Pt last BM unknown per RN doc BS: 14 mod risk Refer to wound assessment report for full details. PES: Altered nutrition related labs r/t current and chronic medical condition aeb pt with with elevated RFTs, hyperglycemia, hypoalb Comments 1) Continue monitor po status, labs, skin 2) Refer pt to OPd on DC 3) If pt remains NPO for the next 48 hrs, consider Jevity 1.2 at 50 ml/hr per MD approval 4) Continue current plan of care
--- NOTE | 2019-08-11 18:12 | NUR ---
FIO2 TITRATED TO 35%, PT TOLERATING WELL.
--- NOTE | 2019-08-11 18:59 | NUR ---
Opening shift note: Primary RN received report on patient. Patient intubated ETT 8.0/26 CM @ LL, Vent settings: AC 24 TV 450, FIO2 35%, PEEP 5, O2 SAT 97%, bilateral lung sounds wheezing and diminished. Right upper arm triple lumen PICC Line. PICC Line infusing, Propofol @ 15, Fentanyl @ 200. NGT to right nostril connected to LIS, placement checked. Arcos catheter draining via gravity with yellow urine. Safety precautions in place. Will continue to monitor.
[2019-08-12] VITALS (108 sets, daily range): BP systolic 82–190; BP diastolic 51–128
[2019-08-12] MEDS: FAMOTIDINE (10MG/ML) 2ML VL IV SCH ×2 (01:53→14:00)
[2019-08-12] MEDS: ALBUTEROL SULF 2.5 MG/0.5ML(0.5%) NEB SOLN NEB SCH ×6 (01:59→22:32)
[2019-08-12] MEDS: IPRATROPIUM BROM 0.5 MG/2.5ML INH SOL NEB SCH ×6 (01:59→22:31)
[2019-08-12 04:45] LABS: Basophils # (auto) 0 10 ^3/uL (0-0.2); Basophils % (auto) 0.1 % (0.0-2.0); Eosinophils # (auto) 0 10 ^3/uL (0-0.8); Hematocrit 36.5 % (36.0-46.0); Hemoglobin 12.1 g/dL (12.2-16.2); Lymphocytes # (auto) 0.4 10 ^3/uL (0.4-5.4); Lymphocytes % (auto) 3.5 % (10.0-50.0); Mean Corpuscular Hemoglobin 33.2 pg (28.0-32.0); Mean Corpuscular Hgb Conc. 33.1 g/dL (32.0-36.0); Mean Corpuscular Volume 100.3 fL (80.0-100.0); Monocytes # (auto) 0.5 10 ^3/uL (0-1.3); Neutrophils # (auto) 9.8 10 ^3/uL (1.6-8.6); Neutrophils % (auto) 91.4 % (37.0-80.0); Platelet Count (auto) 276 10^3/uL (140-450); Red Blood Cells 3.64 10^6/uL (4.0-5.20); Red Cell Distribution Width 15.1 % (11.8-14.3); White Blood Cell 10.8 10^3/uL (4.4-10.8)
[2019-08-12 04:55] LABS: Calcium 8.6 mg/dL (8.5-10.1); Potassium 3.9 mmol/L (3.5-5.1)
[2019-08-12 04:59] LABS: BUN/Creatinine Ratio 16.5
[2019-08-12] MEDS: ACCU-CHEK COMFORT CURVE STRIP VI SCH ×3 (05:37→17:56)
[2019-08-12] MEDS: methylPREDNISolone SOD SUCC 40 MG/ML VL IV SCH ×3 (05:44→21:26)
[2019-08-12] MEDS: PIPERACILLIN-TAZOB 3.375GM 100 ML IV SCH ×3 (05:44→21:26)
[2019-08-12] MEDS: InsuLIN REG 1unit/0.01ml Soln (100units/ml) SC SCH ×3 (05:54→17:57)
[2019-08-12] MEDS: BUDESONIDE (INHALATION) 0.5 MG/2 ML NEB NEB SCH ×2 (06:09→22:32)
[2019-08-12] MEDS: LEVOTHYROXINE SODIUM 50 MCG TAB PO SCH (06:29)
--- NOTE | 2019-08-12 07:30 | NUR ---
OPENING Report received from Dawson BRANDON RN. Care initiated and initial assessment complete.
[2019-08-12] MEDS: MIDAZOLAM DRIP 50 mg/50mL 50 ML IV SCH (08:18)
--- NOTE | 2019-08-12 09:02 | NUR ---
BED BATH Complete bed bath given as well as skin care. Patient tolerated well. Lightly waking up. Nodded head no to understanding where she was at when asked if she understood after stating she is at [facility] ICU.
[2019-08-12] MEDS: SODIUM CHLOR 0.9% PF (SALINE LOCK) 10ML VIAL/SYR IV SCH ×2 (10:00→21:16)
[2019-08-12] MEDS: NOREPINEPHRINE 8 MG/250ML KIT 250 ML IV SCH ×2 (10:01→22:28)
[2019-08-12] MEDS: ENOXAPARIN SOD 40 MG/0.4 ML SYRINGE SC SCH (10:01)
[2019-08-12] MEDS: LEVOTHYROXINE SODIUM 100 MCG/5 ML INJ IV SCH (10:01)
[2019-08-12] MEDS: ALBUTEROL SULF 2.5 MG/0.5ML(0.5%) NEB SOLN NEB PRN (12:05)
--- NOTE | 2019-08-12 13:20 | NUR ---
HIGH PRESSURES Patient not tolerating ventilator. Patient coughing and stacking breaths.
--- NOTE | 2019-08-12 13:37 | NUR ---
BEDSIDE Dr. Miller bedside. Per MD sedate patient due to high pressures. MD had me start propofol back on 20mcg/kg/min.
--- NOTE | 2019-08-12 13:43 | NUR ---
HIGH PRESSURES ONGOING Patient continuing to fight the ventilator.
[2019-08-12] MEDS: DexMEDEtomidine 400 MCG in D5W 5% 96 ML IV SCH (15:03)
--- NOTE | 2019-08-12 16:17 | NUR ---
assessment Patient is a 58 year old female who is alert and oriented. Per jamie long time sig other Dawson prior to admission patient lived home with him and functioned with his assistance. Patient has a cane and nebulizer for home use. Patients PCP is Dr Mason. Per Dawson patient was having a severe asthma attack and he called 911. Patient was admitted and placed on a vent. Dawson is requesting a fww for patient on discharge. I informed Dawson I will continue to monitor patient and follow up as appropriate. I also informed Dawson that patients post discharge needs will be assessed after extubation and prior to discharge. Dawson verbalized understanding. Addendum: 08/12/19 at 1624 by Page MONGE Amended: Links added.
--- NOTE | 2019-08-12 19:00 | NUR ---
Opening notes Assumed care, laying on bed with her eyes closed, on vent and sedation with versed @ 5 mg/hr, fentanyl @ 200 mcg/hr, diprivan @ 30 mcg/min infusing in the right upper arm PICC line, Jevity feeding via NGT infusing @ 20 ml/hr, kohli catheter draining by gravity to a clear urine, SCD's on bilateral lower extremities. Bed in lowest position with side rails up, bed alarm on.
--- NOTE | 2019-08-12 22:00 | NUR ---
TF residuals, 10ml/hr, increased rate @ 30ml/hr.
--- NOTE | 2019-08-12 22:28 | NUR ---
LEVOPHED RESTARTED LEVOPHED @ 2 MCG/MIN, SBP 80'S X 4 CYCLES FOR AN HOUR,MAP < 65.
[2019-08-13] VITALS (95 sets, daily range): BP systolic 84–138; BP diastolic 53–90
--- NOTE | 2019-08-13 | NUR ---
Status update Opens eyes spontaneously and moves upper extremities, instructed to calm down and relax. Secured both hands with mittens bed alarm on and side rails up. Will continue to monitor
--- NOTE | 2019-08-13 | NUR ---
TF residuals, 30 ml, rate maintained @ 30ml/hr
[2019-08-13] MEDS: FAMOTIDINE (10MG/ML) 2ML VL IV SCH ×2 (02:09→14:36)
[2019-08-13] MEDS: fentaNYL Drip 2500mCg/250mlNS 250 ML IV SCH ×2 (02:30→14:52)
[2019-08-13] MEDS: ALBUTEROL SULF 2.5 MG/0.5ML(0.5%) NEB SOLN NEB SCH ×6 (02:37→22:13)
[2019-08-13] MEDS: IPRATROPIUM BROM 0.5 MG/2.5ML INH SOL NEB SCH ×6 (02:37→22:13)
--- NOTE | 2019-08-13 03:00 | NUR ---
TF held temporarily
[2019-08-13] MEDS: DexMEDEtomidine 400 MCG in D5W 5% 96 ML IV SCH (03:17)
--- NOTE | 2019-08-13 03:17 | NUR ---
Versed off, started precedex @ 0.2 mcg/kg/hr BP 131/82, HR 71, Sat 95%, R 24
[2019-08-13 04:37] LABS: Basophils # (auto) 0 10 ^3/uL (0-0.2); Basophils % (auto) 0.1 % (0.0-2.0); Eosinophils # (auto) 0 10 ^3/uL (0-0.8); Hematocrit 39.4 % (36.0-46.0); Hemoglobin 12.7 g/dL (12.2-16.2); Lymphocytes # (auto) 0.3 10 ^3/uL (0.4-5.4); Mean Corpuscular Hemoglobin 33.2 pg (28.0-32.0); Mean Corpuscular Hgb Conc. 32.4 g/dL (32.0-36.0); Mean Corpuscular Volume 102.6 fL (80.0-100.0); Monocytes # (auto) 0.5 10 ^3/uL (0-1.3); Monocytes % (auto) 6.8 % (0.0-12.0); Neutrophils # (auto) 6.4 10 ^3/uL (1.6-8.6); Neutrophils % (auto) 89.1 % (37.0-80.0); Nucleated Red Blood Cells % 0.1 %; Platelet Count (auto) 242 10^3/uL (140-450); Red Blood Cells 3.84 10^6/uL (4.0-5.20); Red Cell Distribution Width 15.1 % (11.8-14.3); White Blood Cell 7.1 10^3/uL (4.4-10.8)
[2019-08-13 05:00] LABS: Calcium 8.7 mg/dL (8.5-10.1); Potassium 4.2 mmol/L (3.5-5.1)
[2019-08-13 05:03] LABS: BUN/Creatinine Ratio 18.9
[2019-08-13] MEDS: InsuLIN REG 1unit/0.01ml Soln (100units/ml) SC SCH ×4 (06:00→18:00)
[2019-08-13] MEDS: ACCU-CHEK COMFORT CURVE STRIP VI SCH ×4 (06:12→18:00)
[2019-08-13] MEDS: methylPREDNISolone SOD SUCC 40 MG/ML VL IV SCH (06:15)
[2019-08-13] MEDS: PIPERACILLIN-TAZOB 3.375GM 100 ML IV SCH ×3 (06:15→22:20)
--- NOTE | 2019-08-13 06:15 | NUR ---
PAGED DR. DYE TO GIVE UPDATE ON PT'S STATUS AND TO GET AN ORDER THAT COULD HELP WITH RESPIRATORY PROBLEMS, PT IS HAVING WHEEZING AND CHEST TIGHTNESS, SATS LOW 90'S, MAXED OUT ON PRECEDEX AND FENTANYL,
--- NOTE | 2019-08-13 06:15 | NUR ---
PAGED THE RT FOR BREATHING TREATMENT
--- NOTE | 2019-08-13 07:15 | NUR ---
REPORT RECEIVED FROM LINSEED OIL REFINER NURSE. PATIENT RESTING IN BED INTUBATED AND SEDATED. RESPIRATIONS EVEN AND UNLABORED. NO SIGNS OF ACUTE DISTRESS NOTED. BED IN LOW POSITION. WILL CONTINUE TO MONITOR.
[2019-08-13] MEDS: MIDAZOLAM DRIP 50 mg/50mL 50 ML IV SCH (08:18)
--- NOTE | 2019-08-13 08:30 | NUR ---
RESIDUALS PATIENT NOTED TO HAVE A DISTENDED ABDOMEN. ASSESSED RESIDUALS AND CONNECTED PATIENT TO SUCTION. REMOVED 300ML OF TUBE FEEDING FROM STOMACH. INFORMED DR DYE. WILL HOLD TUBE FEEDINGS AT THIS TIME.
--- NOTE | 2019-08-13 09:40 | NUR ---
DR DYE AT BEDSIDE TO ASSESS PATIENT AND DISCUSS PLAN OF CARE. MD MADE AWARE OF PATIENTS CONTINUOUS WHEEZING AND BUCKING THE VENTILATOR. PER MD STOP PRECEDEX DRIP AND RESTART PREVIOUS MEDICATION NEEDED. WILL RESTART DIPRIVAN PER PROTOCOL. Addendum: 08/13/19 at 1704 by Verenice Sim RN PER MD ADMINISTER 40MG LASIX IVP X1 DOSE NOW. MD ADJUSTED MEDICATIONS. ALL ORDERS NOTED IN CHART.
[2019-08-13] MEDS ORDERED: FUROSEMIDE 40 MG/4 ML VIAL ONE (09:44)
[2019-08-13] MEDS ORDERED: FUROSEMIDE 40 MG/4 ML VIAL IV ONE (09:45)
[2019-08-13] MEDS: SODIUM CHLOR 0.9% PF (SALINE LOCK) 10ML VIAL/SYR IV SCH ×2 (09:45→22:28)
[2019-08-13] MEDS: ENOXAPARIN SOD 40 MG/0.4 ML SYRINGE SC SCH (09:45)
[2019-08-13] MEDS: LEVOTHYROXINE SODIUM 100 MCG/5 ML INJ IV SCH (09:45)
[2019-08-13] MEDS: BUDESONIDE (INHALATION) 0.5 MG/2 ML NEB NEB SCH ×2 (10:00→22:13)
--- NOTE | 2019-08-13 10:10 | NUR ---
DR REIS AT BEDSIDE TO ASSESS PATIENT AND DISCUSS PLAN OF CARE. ALL ORDERS NOTED IN CHART.
[2019-08-13] MEDS: PROPOFOL 100 ML IV SCH ×3 (10:30→22:21)
--- NOTE | 2019-08-13 11:08 | NUR ---
WOUND CARE NOTE: Added patient to wound care monitoring list due to low Kian score of 14 and intubation status, putting patient to high risk for skin breakdown. Patient is 58 years old female with admitting diagnosis of Acute Resp Failure. Patient is resting in ICU bed in Rm. 106. Patient is intubated, sedated and mechanically ventilated. Patient appears to be in no pain using Marroquin Ramachandran Faces Pain Scale. Patient has no wound, no pressure injury noted per bedside nurse, MANOJ Caldera. Patient is receiving BID/PRN cleaning and application of Barrier cream to sacral, buttocks as preventative. RECOMMENDATION: Nursing to continue with BID/PRN cleaning and application of Barrier cream to sacral, buttocks as preventative, frequent turning and repositioning schedule as condition permits, redistribute pressure points with pillows, elevate heels on pillows, continue monitoring by wound care while patient is intubated and has Kian score of <18. Addendum: 08/13/19 at 1617 by Vandana Jacinto RN [id number] Repositioned patient with the assistance of patient's nurse, MANOJ Caldera. Patient's sacral, back, bony prominences examined, no wound noted, no pressure injury noted. Repositioned patient for comfort facing her Rt. side, redistributed pressure points with pillows. Patient tolerated well.
--- NOTE | 2019-08-13 11:10 | NUR ---
UPDATED MONI SIGNIFICANT OTHER ON PATIENT STATUS. ALL QUESTIONS AND CONCERNS ADDRESSED AT THIS TIME.
--- NOTE | 2019-08-13 14:10 | NUR ---
Nutrition Followup Notes Wt: 98.6 kg Pt is sedated, intubated, NPO with no current nutrition support. Will continue to monitor PO status, skin status, pertinent labs and weight trends. Will f/u in 2-3 days. Est energy needs 4775-2450 kcal (18-20 kcal/kg BW 91.1kg) , Est protein needs 55-68g (0.6-0.75g/kg BW 91.1g/kg r/t CKD 3 no HD). Will reassess prn. LABS: BUN 28 H, CREAT 1.48 H, GLU 140 H GI: Pt last BM unknown per RN doc BS: 14 mod risk Refer to wound assessment report for full details. PES: Altered nutrition related labs r/t current and chronic medical condition aeb pt with with elevated RFTs, hyperglycemia, hypoalb Comments 1) Refer pt to OPd on DC. 2) Advance diet as medially feasible. 3) ) If pt remains NPO for the next 48 hrs, consider Jevity 1.2 at 50 ml/hr per MD approval. 4) Continue current plan of care
[2019-08-13] MEDS: HYDROCORTISONE SOD SUCC 100 MG/2ML INJ VIAL IV SCH ×2 (14:36→22:18)
--- NOTE | 2019-08-13 15:45 | NUR ---
WOUND CARE NURSE AT BEDSIDE TO ASSESS PATIENT AND DISCUSS PLAN OF CARE.
--- NOTE | 2019-08-13 20:34 | NUR ---
Respiratory note: EXCESSIVE CONDENSATION NOTED IN CORRUGATED TUBING, HME SATURATED. PT CHANGED TO HEATED WIRE CIRCUIT. PT BAGGED WITH 100% FIO2 VIA AMBU BAG DURING HEATED WIRE CIRCUIT SETUP, UNEVENTFUL. VENT V17 SST'D AND PASSED AFTER SETUP. VENT REMAINS PLUGGED INTO RED OUTLET. ALARMS CHECKED, SET APPROPRIATELY AND AUDIBLE, PT PLACED BACK ON PREVIOUS VENT SETTINGS. WILL CONTINUE TO MONITOR.
[2019-08-14] VITALS (98 sets, daily range): BP systolic 77–179; BP diastolic 43–102
[2019-08-14] MEDS: FAMOTIDINE (10MG/ML) 2ML VL IV SCH ×2 (02:00→14:28)
[2019-08-14] MEDS: IPRATROPIUM BROM 0.5 MG/2.5ML INH SOL NEB SCH ×6 (02:07→22:20)
[2019-08-14] MEDS: ALBUTEROL SULF 2.5 MG/0.5ML(0.5%) NEB SOLN NEB SCH ×6 (02:07→22:19)
[2019-08-14] MEDS: PROPOFOL 100 ML IV SCH ×4 (02:48→21:52)
[2019-08-14] MEDS: fentaNYL Drip 2500mCg/250mlNS 250 ML IV SCH ×2 (02:50→14:30)
[2019-08-14 04:36] LABS: Hematocrit 36.5 % (36.0-46.0); Hemoglobin 12.1 g/dL (12.2-16.2); Mean Corpuscular Hemoglobin 33.1 pg (28.0-32.0); Mean Corpuscular Hgb Conc. 33.2 g/dL (32.0-36.0); Mean Corpuscular Volume 99.8 fL (80.0-100.0); Platelet Count (auto) 237 10^3/uL (140-450); Red Blood Cells 3.65 10^6/uL (4.0-5.20); White Blood Cell 6.5 10^3/uL (4.4-10.8)
[2019-08-14 04:58] LABS: Potassium 3.3 mmol/L (3.5-5.1)
[2019-08-14 05:06] LABS: Albumin 2.6 g/dL (3.4-5.0); BUN/Creatinine Ratio 23.9; Calcium 8.4 mg/dL (8.5-10.1); Total Protein 5.9 g/dL (6.4-8.2)
[2019-08-14 05:10] LABS: Band Neutrophils % (manual) 0; Basophils % (manual) 0 (0.0-2.0); Blast Cells 0; Eosinophils % (manual) 0 (0-7); Metamyelocytes % 0; Myelocytes % 0; Promyelocytes % 0; Reactive Lymphocytes 0
[2019-08-14] MEDS: HYDROCORTISONE SOD SUCC 100 MG/2ML INJ VIAL IV SCH ×3 (05:43→21:45)
[2019-08-14] MEDS: PIPERACILLIN-TAZOB 3.375GM 100 ML IV SCH ×3 (05:44→21:47)
[2019-08-14 05:49] LABS: Lymphocytes % (manual) 6 (10.0-50.0); Monocytes % (manual) 2 (0-12)
[2019-08-14] MEDS: ACCU-CHEK COMFORT CURVE STRIP VI SCH ×5 (06:00→23:42)
[2019-08-14] MEDS: InsuLIN REG 1unit/0.01ml Soln (100units/ml) SC SCH ×5 (06:00→23:45)
--- NOTE | 2019-08-14 07:21 | NUR ---
Opening Shift Note Assumed care of patient, under mild sedation. Patient is moving hands weakly trying to reach her mouth. Mittens on hands but not tied to any structure. Skin around wrists and hands is intact, warm, and color is normal for ethnicity. Vent settings: PEEP: 5 cmH20, Tidal volume: 450ml, FiO2: 30%, PSV: 7. NG tube is 56 cm in left nare. No aspirate pulled from tube. Patient turned and sacrum/ back assessed. Bed is in lowest position and locked. Call light within reach. Board updated. Will continue to monitor for changes Q1hr and PRN.
[2019-08-14] MEDS: MIDAZOLAM DRIP 50 mg/50mL 50 ML IV SCH (08:18)
--- NOTE | 2019-08-14 09:00 | NUR ---
Patient started on sedation vacation Fentanyl decreased to 150 mcg/min. Diprovan decreased to 35 mcg/kg/min. Will continue to assess patient's response.
[2019-08-14] MEDS: BUDESONIDE (INHALATION) 0.5 MG/2 ML NEB NEB SCH ×2 (09:31→22:19)
--- NOTE | 2019-08-14 09:31 | NUR ---
FAMILY MONI UPDATED ON PATIENT STATUS. ALL QUESTIONS AND CONCERNS ADDRESSED AT THIS TIME
[2019-08-14] MEDS: SODIUM CHLOR 0.9% PF (SALINE LOCK) 10ML VIAL/SYR IV SCH ×2 (09:54→21:45)
[2019-08-14] MEDS: ENOXAPARIN SOD 40 MG/0.4 ML SYRINGE SC SCH (09:55)
[2019-08-14] MEDS: LEVOTHYROXINE SODIUM 100 MCG/5 ML INJ IV SCH (09:55)
[2019-08-14] MEDS ORDERED: POTASSIUM CHLORIDE 40 MEQ, LIDOCAINE 1% (LOCAL ANESTH.) 4 ML in SODIUM CHL 0.9% 100 ML IV ONE (10:15)
[2019-08-14] MEDS ORDERED: FUROSEMIDE 40 MG/4 ML VIAL IV ONE (10:15)
[2019-08-14] MEDS: NOREPINEPHRINE 8 MG/250ML KIT 250 ML IV SCH (10:16)
--- NOTE | 2019-08-14 10:22 | NUR ---
Md You in to see patient. Orders placed including GI consult. Addendum: 08/14/19 at 1937 by ZHOU HARRIS RN notified of low potassium level, 3.3 [address] he will place order for 40 mEq potassium chloride rider.
--- NOTE | 2019-08-14 10:22 | NUR ---
Patient not tolerating sedation vacation. BP increased to 158/80. Patient is visibly more agitated and keeps trying to reach up for ET tube and patient is grimacing. Fentanyl increased 25 mcg/min to 175 mcg/hr and Diprovan increased 10 mcg/kg/min to 45 mcg/kg/min. Will continue to assess.
[2019-08-14] MEDS: DexMEDEtomidine 400 MCG in D5W 5% 96 ML IV SCH (10:54)
--- NOTE | 2019-08-14 11:17 | NUR ---
Kimberly in to see patient. Orders placed for Reglan, KUB, and abdominal X-Ray of RUQ, all placed by MD in person.
[2019-08-14] MEDS: POTASSIUM CHL 20MEQ/100ML 100 ML IV SCH ×2 (11:22→13:21)
--- NOTE | 2019-08-14 13:21 | NUR ---
Patient placed on Versed and titrated to 5 mg/hr to achieve RAAS of -3. Will continue to assess.
[2019-08-14] MEDS: METOCLOPRAMIDE HCL 5MG/ml INJ 2ml VIAL IV SCH ×2 (14:29→21:43)
--- NOTE | 2019-08-14 15:35 | NUR ---
Patient under moderate sedation with RAAS of -3. Patient turned and partial linen change performed. Will continue to assess.
--- NOTE | 2019-08-14 18:17 | NUR ---
Patient's BP began to drop, lowest recorded BP was 72/43. Levophed increased to 6 mcg/min. BP is currently 101/64. Will continue to assess.
--- NOTE | 2019-08-14 19:21 | NUR ---
Closing note: Care endorsed to MANOJ Lovett. No signs of SOB /distress noted.
--- NOTE | 2019-08-14 19:50 | NUR ---
OPEN NOTES Received patient sedated with Propofol, Fentanyl and Versed. Patient pupils sluggishly reactive to light. Very hypoactive cough and gag. Sedation titrated. Intubated ETT 8.0, lip marking 24 cm, on AC mode, FIO2 40%. Lung sounds wheezy on the upper lobes. Oral care done. Has some bloody secretions from the mouth. ECG SR, on IV Levophed at 6mcg/min - will titrate to keep SBP >90 mmHg. Left nares NGT connected to LIS with greenish output. Kept NPO for now. Reglan started today. Abdomen still distended but soft. Arcos catheter draining to yellowish clear output. Full assessment done -Refer interventions. Continue POC
[2019-08-15] VITALS (103 sets, daily range): BP systolic 88–154; BP diastolic 53–92
--- NOTE | 2019-08-15 00:10 | NUR ---
SATURATION 91% RT ADJUSTED FIO2 TO 35% SATS = 97%
[2019-08-15] MEDS: PROPOFOL 100 ML IV SCH ×3 (01:29→21:33)
[2019-08-15] MEDS: FAMOTIDINE (10MG/ML) 2ML VL IV SCH ×2 (01:32→14:07)
[2019-08-15] MEDS: fentaNYL Drip 2500mCg/250mlNS 250 ML IV SCH (01:37)
[2019-08-15] MEDS: IPRATROPIUM BROM 0.5 MG/2.5ML INH SOL NEB SCH ×6 (02:29→22:06)
[2019-08-15] MEDS: ALBUTEROL SULF 2.5 MG/0.5ML(0.5%) NEB SOLN NEB SCH ×6 (02:29→22:06)
--- NOTE | 2019-08-15 05:00 | NUR ---
Patient bathe/linen change Patient cleaned with CHG wipes. Skin integrity assessed for any changes. Linens changed. Patient repositioned for comfort.
[2019-08-15 05:16] LABS: Basophils # (auto) 0 10 ^3/uL (0-0.2); Basophils % (auto) 0.1 % (0.0-2.0); Eosinophils # (auto) 0 10 ^3/uL (0-0.8); Eosinophils % (auto) 0.1 % (0.0-7.0); Hematocrit 34.8 % (36.0-46.0); Hemoglobin 11.6 g/dL (12.2-16.2); Lymphocytes # (auto) 0.5 10 ^3/uL (0.4-5.4); Mean Corpuscular Hemoglobin 32.9 pg (28.0-32.0); Mean Corpuscular Hgb Conc. 33.2 g/dL (32.0-36.0); Mean Corpuscular Volume 99.1 fL (80.0-100.0); Monocytes # (auto) 0.4 10 ^3/uL (0-1.3); Monocytes % (auto) 6.6 % (0.0-12.0); Neutrophils # (auto) 5.1 10 ^3/uL (1.6-8.6); Neutrophils % (auto) 85.2 % (37.0-80.0); Nucleated Red Blood Cells % 0.1 %; Platelet Count (auto) 215 10^3/uL (140-450); Red Blood Cells 3.51 10^6/uL (4.0-5.20); Red Cell Distribution Width 15.2 % (11.8-14.3)
[2019-08-15 05:35] LABS: Albumin 2.5 g/dL (3.4-5.0); Calcium 8.2 mg/dL (8.5-10.1); Potassium 3.1 mmol/L (3.5-5.1)
[2019-08-15 05:41] LABS: Bilirubin, Total 0.8 mg/dL (0.2-1.0); Total Protein 5.6 g/dL (6.4-8.2)
[2019-08-15] MEDS: ACCU-CHEK COMFORT CURVE STRIP VI SCH ×4 (05:47→23:24)
[2019-08-15] MEDS: InsuLIN REG 1unit/0.01ml Soln (100units/ml) SC SCH ×4 (05:50→23:24)
[2019-08-15] MEDS: METOCLOPRAMIDE HCL 5MG/ml INJ 2ml VIAL IV SCH ×3 (05:53→21:32)
[2019-08-15] MEDS: HYDROCORTISONE SOD SUCC 100 MG/2ML INJ VIAL IV SCH ×3 (05:55→21:33)
[2019-08-15] MEDS: PIPERACILLIN-TAZOB 3.375GM 100 ML IV SCH ×3 (05:57→21:33)
[2019-08-15] MEDS: BUDESONIDE (INHALATION) 0.5 MG/2 ML NEB NEB SCH ×2 (06:26→18:11)
--- NOTE | 2019-08-15 06:34 | NUR ---
PAGED HOSPITALIST FOR LOW POTASSIUM
--- NOTE | 2019-08-15 06:38 | NUR ---
HOSPITALIST CALLED BACK TELEPHONE ORDER RECEIVED AND VERIFIED
--- NOTE | 2019-08-15 07:00 | NUR ---
REPORT REPORT GIVEN TO MANOJ CAMPBELL
--- NOTE | 2019-08-15 07:12 | NUR ---
Opening Shift Note Assumed care of patient, under mild sedation. Patient is sedated with RAAS of -3. Mittens on hands but not tied to any structure. Skin around wrists and hands is intact, warm, and color is normal for ethnicity. Vent settings: PEEP: 5 cmH20, Tidal volume: 450ml, FiO2: 35%, PSV: 7. NG tube is 58 cm in left nare. No aspirate pulled from tube. Patient turned and sacrum/ back assessed. Bed is in lowest position and locked. Call light within reach. Board updated. Will continue to monitor for changes Q1hr and PRN.
[2019-08-15] MEDS: POTASSIUM CHL 20MEQ/100ML 100 ML IV SCH ×2 (07:20→09:19)
[2019-08-15] MEDS: MIDAZOLAM DRIP 50 mg/50mL 50 ML IV SCH (08:18)
[2019-08-15] MEDS: DexMEDEtomidine 400 MCG in D5W 5% 96 ML IV SCH (08:52)
--- NOTE | 2019-08-15 09:18 | NUR ---
Attempting to restart feeding now. Jevity 1.2 kCal/hr started at 10 ml/hr. No gastric contents aspirated prior to starting feeding. Verified placement of NG tube via auscultation with a second RN, Garrett. Will continue to assess.
--- NOTE | 2019-08-15 09:19 | NUR ---
Sedation vacation started. Diprovan decreased from 40 mcg/kg/min to 30 mcg/kg/min. Fentanyl decreased from 200 mcg/min to 150 mcg/min. Will continue to assess.
[2019-08-15] MEDS: ENOXAPARIN SOD 40 MG/0.4 ML SYRINGE SC SCH (09:20)
[2019-08-15] MEDS: LEVOTHYROXINE SODIUM 100 MCG/5 ML INJ IV SCH (09:20)
[2019-08-15] MEDS: SODIUM CHLOR 0.9% PF (SALINE LOCK) 10ML VIAL/SYR IV SCH ×2 (09:20→22:22)
[2019-08-15] MEDS: NOREPINEPHRINE 8 MG/250ML KIT 250 ML IV SCH (09:38)
--- NOTE | 2019-08-15 09:46 | NUR ---
Sedation vacation stopped. BP daniele to 150/89, patient began to reach for ET tube, and had noticeable facial grimacing. Fentanyl increased to 175 mcg/min and Diprovan increased to 40 mcg/kg/min. Will continue to assess.
--- NOTE | 2019-08-15 10:24 | NUR ---
NG tube feeding stopped. 20 mls of feeding aspirated from NG tube. Jevity feeding stopped. Will notify hospitalist. Will continue to assess.
--- NOTE | 2019-08-15 11:02 | NUR ---
Md Seay in to see patient. MD made aware of patient not being able to tolerate feeding and hypoactive bowel sounds. MD will place orders. No orders given to me at this time.
--- NOTE | 2019-08-15 11:08 | NUR ---
MD Jay has spoke to MD Harris, who ordered patient be placed on TPN per pharmacy. Order verified and placed.
[2019-08-15] MEDS ORDERED: TPN PER PHARMACY IV SCH (11:15)
--- NOTE | 2019-08-15 12:22 | NUR ---
MD Miller in to see patient. Order received: Bumex 2 mg IV daily with first dose to be given now. Per MD Miller, increase Precedex, decrease Fentanyl and Diprivan, and attempt CPAP trial if patient's can safely be placed it. Will modify sedation regimen and continue to assess.
[2019-08-15] MEDS: BUMETANIDE 2.5mg/10ml (0.25 mg/ml) INJ IV SCH (13:17)
--- NOTE | 2019-08-15 14:00 | NUR ---
Precedex started at 0.2 mcg/min. Diprivan decreased to 30 mcg/kg/min and fentanyl decreased to 175 mcg/min to attempt to raise patient's RAAS and attempt CPAP trial with RT. Will continue to assess.
--- NOTE | 2019-08-15 15:34 | NUR ---
aware that patient's oxygen saturation has dropped to 88-89% as sedation has been decreased and patient has become more conscious. Sedation decrease for possible CPAP trial cancelled. Addendum: 08/15/19 at 2007 by ZHOU HARRIS RN Patient is still on Fentanyl and Diprivan titrated infusions but oxygen started drop immediately after patient's RAAS daniele from -3 to -2.
--- NOTE | 2019-08-15 16:45 | NUR ---
Patient is currently at RAAS of -3. Oxygen saturation is currently 96% but RT had to increase FiO2 to 50% to maintain this saturation level. Wheezes auscultated in bilateral lobes throughout. Will continue to assess.
--- NOTE | 2019-08-15 18:02 | NUR ---
PICC line dressing change performed using sterile technique. Arm base circumference is 34 cm. Site cleaned with chlorhexidine. New Biopatch placed over site. End of cath is even with insertion site. No signs of displacement. Placed Tegaderm over site. Connectors changed for each of the three lumens. Patient tolerated well.
--- NOTE | 2019-08-15 19:10 | NUR ---
OPENING SHIFT RECEIVED REPORT FROM DAY SHIFT RN. ASSUMED CARE OF PATIENT. PATIENT INTUBATED AND SEDATED WIT NO SIGNS OR SYMPTOMS OF SOB, PAIN OR DISTRESS. HYPOACTIVE COUGH AND GAG. RIGHT UPPER ARM PICC TLC - CLEAN/DRY/INTACT. LEFT NARE NGT TO LIS. HERRON PATENT AND HUNG TO GRAVITY. SEDATION: FENTANYL - 200MCG/HR PROPOFOL - 40MCG/KG/MIN REPOSITIONED FOR COMFORT. BED IN LOWEST POSITION, SIDE RAILS UP X2. WILL CONTINUE TO MONITOR.
--- NOTE | 2019-08-15 19:24 | NUR ---
Closing note: Care endorsed to MANOJ Hair. No signs of SOB /distress noted on transfer of care.
[2019-08-15] MEDS ORDERED: TPN PER PHARMACY IV NR ×8 (20:00)
[2019-08-16] VITALS (97 sets, daily range): BP systolic 101–197; BP diastolic 62–123
[2019-08-16] MEDS: PROPOFOL 100 ML IV SCH (01:00)
[2019-08-16] MEDS: DexMEDEtomidine 400 MCG in D5W 5% 96 ML IV SCH ×4 (02:00→23:19)
--- NOTE | 2019-08-16 02:10 | NUR ---
MORNING CARE PERFORMED MORNING CARE WITH CHG WIPES AND WASH CLOTHS. PARTIAL LINEN CHANGE AND GOWN CHANGED. REPOSITIONED FOR COMFORT. SKIN REASSESSED AT THIS TIME. ORAL AND HERRON CARE PERFORMED. WILL CONTINUE TO MONITOR.
[2019-08-16] MEDS: IPRATROPIUM BROM 0.5 MG/2.5ML INH SOL NEB SCH ×6 (02:12→22:40)
[2019-08-16] MEDS: ALBUTEROL SULF 2.5 MG/0.5ML(0.5%) NEB SOLN NEB SCH ×6 (02:12→22:40)
[2019-08-16] MEDS: fentaNYL Drip 2500mCg/250mlNS 250 ML IV SCH ×3 (02:19→17:39)
[2019-08-16] MEDS: FAMOTIDINE (10MG/ML) 2ML VL IV SCH ×2 (02:19→15:21)
[2019-08-16 04:35] LABS: Hematocrit 36.3 % (36.0-46.0); Hemoglobin 12.1 g/dL (12.2-16.2); Mean Corpuscular Hemoglobin 33.3 pg (28.0-32.0); Mean Corpuscular Hgb Conc. 33.4 g/dL (32.0-36.0); Mean Corpuscular Volume 99.7 fL (80.0-100.0); Platelet Count (auto) 215 10^3/uL (140-450); Red Blood Cells 3.64 10^6/uL (4.0-5.20); White Blood Cell 7.7 10^3/uL (4.4-10.8)
[2019-08-16 05:12] LABS: Albumin 2.5 g/dL (3.4-5.0); Bilirubin, Total 0.7 mg/dL (0.2-1.0); Magnesium 2.4 mg/dL (1.6-2.6); Phosphorus 2.4 mg/dL (2.5-4.90); Pre Albumin 42.4 mg/dL (20.0-40.0); Total Protein 5.7 g/dL (6.4-8.2)
[2019-08-16 05:15] LABS: Basophils % (manual) 0 (0.0-2.0); Blast Cells 0; Eosinophils % (manual) 0 (0-7); Metamyelocytes % 0; Myelocytes % 0; Promyelocytes % 0; Reactive Lymphocytes 0
[2019-08-16 05:17] LABS: Potassium 2.6 mmol/L (3.5-5.1)
--- NOTE | 2019-08-16 05:20 | NUR ---
PAGED HOSPITALIST, AWAITING CALL BACK.
[2019-08-16] MEDS: ACCU-CHEK COMFORT CURVE STRIP VI SCH ×4 (06:00→23:40)
[2019-08-16] MEDS: InsuLIN REG 1unit/0.01ml Soln (100units/ml) SC SCH ×4 (06:00→23:39)
--- NOTE | 2019-08-16 06:06 | NUR ---
SPOKE WITH HOSPITALIST DR. NIETO MADE AWARE OF POTASSIUM - 2.6 AND PHOSPHORUS - 2.4 RECEIVED ORDERS FOR 80 MEQ K RIDER AND 20 MEQ SODIUM PHOSPHATASE IV. NOTED AND CARRIED OUT. WILL CONTINUE TO MONITOR.
[2019-08-16] MEDS ORDERED: POTASSIUM CHL 20MEQ/100ML 100 ML IV ONE (06:12)
[2019-08-16] MEDS ORDERED: SODIUM PHOSPHATES 20 MEQ in SODIUM CHL 0.9% 100 ML IV ONE (06:15)
--- NOTE | 2019-08-16 06:17 | NUR ---
Respiratory note: RECEIVED PATIENT ON V17 V200 VENT ORALLY INTUBATED WITH AN 8.0 ETT SECURED VIA STAN AT THE 24CM MARKING AT THE LIP, AND MECHANICALLY VENTILATED WITH THE CHARTED SETTINGS. SPO2 92%, LUNG SOUNDS EXPIRATORY WHEEZES T/O, NO SECRETIONS WHEN SUCTIONED. SKIN IS WARM/DRY TO THE TOUCH AND IS INTACT NEAR STAN SITE. THERE IS A NGT IN THE RIGHT NARE AND SECURED TO THE NOSE. THERE IS A POICC LINE PLACED IN THE RIGHT BICEP. PITTING EDEMA NOTED IN BILATERAL UPPER AND LOWER EXTREMITIES. SEQUENTIAL LEG STOCKINGS IN PLACE AND OPERATIONAL. AM CXR ASSESSED AND IT SHOWS THE ETT IN UNSATISFACTORY POSITION SITTING APPROX 1.4CM ABOVE THE VANESSA, ETT SUBSEQUENTLY RETRACTED 2CM AND RESECURED AT THE 22CM MARKING AT THE LIP. RN JACQUELIN MADE AWARE OF CHANGE. PATIENT IS SLIGHTLY RESPONSIVE TO TACTILE STIMULI, BUT SHOWS NO RESPONSE TO VERBAL STIMULI, AND IS SEDATED ON PROPOFOL, FENTANYL, AND PRECEDEX DRIPS. SHE IS RESTING COMFORTABLY AND TOLERATING VENT WELL, NO CHANGES MADE. VENT PLUGGED INTO RED OUTLET AND ALL ALARMS ARE SET AND AUDIBLE. WILL CONTINUE TO ASSESS PATIENT WELL VENTILATOR FUNCTION. [employer] RUN INLINE.
[2019-08-16] MEDS: METOCLOPRAMIDE HCL 5MG/ml INJ 2ml VIAL IV SCH ×3 (06:18→22:04)
[2019-08-16] MEDS: PIPERACILLIN-TAZOB 3.375GM 100 ML IV SCH ×3 (06:18→22:04)
[2019-08-16] MEDS: HYDROCORTISONE SOD SUCC 100 MG/2ML INJ VIAL IV SCH ×3 (06:18→22:04)
[2019-08-16] MEDS: POTASSIUM CHL 20MEQ/100ML 100 ML IV SCH ×4 (06:34→11:48)
[2019-08-16 06:43] LABS: Band Neutrophils % (manual) 1; Lymphocytes % (manual) 7 (10.0-50.0); Monocytes % (manual) 5 (0-12)
--- NOTE | 2019-08-16 07:08 | NUR ---
END OF SHIFT REPORT GIVEN TO DAY SHIFT RN. CARE ENDORSED.
[2019-08-16] MEDS: SODIUM CHLOR 0.9% PF (SALINE LOCK) 10ML VIAL/SYR IV SCH ×3 (08:45→22:04)
[2019-08-16] MEDS: BUMETANIDE 2.5mg/10ml (0.25 mg/ml) INJ IV SCH (08:45)
[2019-08-16] MEDS: LEVOTHYROXINE SODIUM 100 MCG/5 ML INJ IV SCH (08:45)
[2019-08-16 09:21] LABS: Hepatitis B Surface Antibody Negative
[2019-08-16] MEDS: BUDESONIDE (INHALATION) 0.5 MG/2 ML NEB NEB SCH ×2 (09:42→22:40)
--- NOTE | 2019-08-16 09:47 | NUR ---
Respiratory note: FIO2 INCREASED TO 35% AT THIS TIME FOR LOW SPO2. MANOJ GONZALEZ MADE AWARE OF CHANGE.
[2019-08-16 09:59] LABS: Hepatitis A Total Antibody Negative
[2019-08-16] MEDS: ENOXAPARIN SOD 40 MG/0.4 ML SYRINGE SC SCH (11:06)
[2019-08-16] MEDS ORDERED: LACTULOSE 20Gm/30ML SOLN PO ONE (11:15)
--- NOTE | 2019-08-16 11:47 | NUR ---
Respiratory note: PATIENT TRIALED ON CPAP BUT IS OVERLY AGITATED AND COULD NOT TOLERATE SPONTANEOUS BREATHING. CPAP TRIAL TERMINATED WITHIN 2 MINUTES. MANOJ GONZALEZ AWARE OF TRIAL AND FAILURE. WILL ATTEMPT AGAIN WHEN PATIENT IS MORE RELAXED.
--- NOTE | 2019-08-16 11:48 | NUR ---
Patient appears restless and agitated. Fentanyl and Precedex increased per protocol, see flowsheet.
--- NOTE | 2019-08-16 12:51 | NUR ---
Dr. Ray at bedside.
[2019-08-16 13:54] LABS: Hepatitis B Core Total AB Negative; Hepatitis B Surface Antigen Negative (Negative); Hepatitis C Antibody Negative (Negative)
--- NOTE | 2019-08-16 16:08 | NUR ---
Nutrition Followup Notes Wt: 92.2 kg Pt is sedated, intubated, NPO with TPN @ 43 ml/hr, providing 1050 kcals, 50g protein and 850 NPCs. Pt with inadequate energy intake from PN support as it meets 58% to 64% of est caloric needs. Protein intake from PN support is adequate as it meets 74% to 91% of est protein needs. Note pt sedated with propofol @ 19.051 ml/hr providing an additional 503 kcals from lipids. Will continue to monitor PO status, skin status, pertinent labs and weight trends. Will f/u in 2-3 days. Est energy needs 5867-0322 kcal (18-20 kcal/kg BW 91.1kg) , Est protein needs 55-68g (0.6-0.75g/kg BW 91.1g/kg r/t CKD 3 no HD). Will reassess prn. LABS: BUN 26 H, CREAT 1.24 H, GFR 47 L, GLU 154 H, Alb 2.5 L GI: Pt last BM on 08/10 per RN doc BS: 11 high risk Refer to wound assessment report for full details. PES: Altered nutrition related labs r/t current and chronic medical condition aeb pt with with elevated RFTs, hyperglycemia, hypoalb Comments 1) Refer pt to OPd on DC. 2) Advance diet as medially feasible. 3) If pt remains NPO for the next 48 hrs, consider Jevity 1.2 at 50 ml/hr per MD approval. 4) Continue current plan of care
[2019-08-16] MEDS ORDERED: ACETAMINOPHEN 650 MG RECT SUPP PR ONE (17:05)
[2019-08-16] MEDS: LACTULOSE 20Gm/30ML SOLN PO SCH ×2 (17:36→23:18)
[2019-08-16] MEDS: ACETAMINOPHEN 650 MG RECT SUPP PR PRN (17:42)
[2019-08-16] MEDS ORDERED: LACTULOSE 20Gm/30ML SOLN PO PRN (18:00)
--- NOTE | 2019-08-16 18:51 | NUR ---
Dr. Burnett at bedside.
[2019-08-16] MEDS ORDERED: TPN PER PHARMACY IV NR ×10 (20:00)
[2019-08-16] MEDS: PROMETHAZINE HCL 25 MG/ML 1ML IV PRN (22:08)
[2019-08-17] VITALS (82 sets, daily range): BP systolic 129–196; BP diastolic 77–144
[2019-08-17] MEDS: FAMOTIDINE (10MG/ML) 2ML VL IV SCH ×2 (02:24→14:55)
[2019-08-17] MEDS: PROMETHAZINE HCL 25 MG/ML 1ML IV PRN (02:37)
[2019-08-17] MEDS: IPRATROPIUM BROM 0.5 MG/2.5ML INH SOL NEB SCH ×6 (02:38→21:59)
[2019-08-17] MEDS: ALBUTEROL SULF 2.5 MG/0.5ML(0.5%) NEB SOLN NEB SCH ×6 (02:38→21:59)
[2019-08-17 05:03] LABS: Basophils # (auto) 0 10 ^3/uL (0-0.2); Basophils % (auto) 0.1 % (0.0-2.0); Eosinophils # (auto) 0 10 ^3/uL (0-0.8); Eosinophils % (auto) 0.2 % (0.0-7.0); Hematocrit 36.5 % (36.0-46.0); Hemoglobin 12.1 g/dL (12.2-16.2); Lymphocytes # (auto) 0.7 10 ^3/uL (0.4-5.4); Lymphocytes % (auto) 7.3 % (10.0-50.0); Mean Corpuscular Hemoglobin 33.1 pg (28.0-32.0); Mean Corpuscular Hgb Conc. 33.1 g/dL (32.0-36.0); Mean Corpuscular Volume 99.9 fL (80.0-100.0); Monocytes # (auto) 0.6 10 ^3/uL (0-1.3); Monocytes % (auto) 6.5 % (0.0-12.0); Neutrophils # (auto) 7.9 10 ^3/uL (1.6-8.6); Neutrophils % (auto) 85.9 % (37.0-80.0); Nucleated Red Blood Cells % 0.1 %; Platelet Count (auto) 211 10^3/uL (140-450); Red Blood Cells 3.65 10^6/uL (4.0-5.20); White Blood Cell 9.2 10^3/uL (4.4-10.8)
[2019-08-17] MEDS: DexMEDEtomidine 400 MCG in D5W 5% 96 ML IV SCH (05:15)
[2019-08-17] MEDS: fentaNYL Drip 2500mCg/250mlNS 250 ML IV SCH (05:17)
[2019-08-17] MEDS: HYDROCORTISONE SOD SUCC 100 MG/2ML INJ VIAL IV SCH ×3 (05:18→22:00)
[2019-08-17] MEDS: METOCLOPRAMIDE HCL 5MG/ml INJ 2ml VIAL IV SCH (05:18)
[2019-08-17] MEDS: PIPERACILLIN-TAZOB 3.375GM 100 ML IV SCH ×3 (05:18→22:00)
[2019-08-17 05:32] LABS: Albumin 2.5 g/dL (3.4-5.0); BUN/Creatinine Ratio 20.2; Bilirubin, Total 1.2 mg/dL (0.2-1.0); Calcium 8.1 mg/dL (8.5-10.1); Magnesium 2.2 mg/dL (1.6-2.6); Phosphorus 2.7 mg/dL (2.5-4.90)
[2019-08-17 05:42] LABS: Potassium 2.6 mmol/L (3.5-5.1)
[2019-08-17] MEDS: InsuLIN REG 1unit/0.01ml Soln (100units/ml) SC SCH ×3 (06:00→17:34)
[2019-08-17] MEDS: LACTULOSE 20Gm/30ML SOLN PO SCH ×3 (06:05→18:00)
[2019-08-17] MEDS: ACCU-CHEK COMFORT CURVE STRIP VI SCH ×3 (06:05→17:20)
--- NOTE | 2019-08-17 06:18 | NUR ---
Respiratory note: RECEIVED PATIENT ON V17 V200 VENT ORALLY INTUBATED WITH AN 8.0 ETT SECURED VIA STAN AT THE 22CM MARKING AT THE LIP, AND MECHANICALLY VENTILATED WITH THE ABOVE CHARTED SETTINGS. SPO2 95%, LUNG SOUNDS EXPIRATORY WHEEZES T/O, SMALL AMOUNT OF THICK MYERS SECRETIONS WHEN SUCTIONED. SKIN IS WARM/DRY TO THE TOUCH AND IS INTACT NEAR STAN SITE. THERE IS A NGT IN THE RIGHT NARE AND SECURED TO THE NOSE. THERE IS A PICC LINE PLACED IN THE RIGHT BICEP. PITTING EDEMA NOTED IN BILATERAL UPPER AND LOWER EXTREMITIES. SEQUENTIAL LEG STOCKINGS IN PLACE AND OPERATIONAL. PATIENT IS SLIGHTLY RESPONSIVE TO BOTH TACTILE AND VERBAL STIMULI, AND IS SEDATED ON FENTANYL, AND PRECEDEX DRIPS. SHE IS RESTING COMFORTABLY AND TOLERATING VENT WELL, NO CHANGES MADE. VENT PLUGGED INTO RED OUTLET AND ALL ALARMS ARE SET AND AUDIBLE. WILL CONTINUE TO ASSESS PATIENT WELL VENTILATOR FUNCTION. [employer] RUN IN[employer].
--- NOTE | 2019-08-17 06:19 | NUR ---
k level reported 2.4 , hospitalist paged for replacement order.
--- NOTE | 2019-08-17 07:20 | NUR ---
Opening Shift Note Assumed care of patient, pt awake under light sedation. Ventilator to A/C Rate: 24, VT: 450, FIO2:35% Peep: 5, Size 8.0 ETT 22 @Lip. NG tube in place @ 56 cm in Right nare, to LCS. No aspirate pulled from tube. Pt on Precedex Gtt @07mcg/kg/hr, Fentanyl Gtt @200mcg/hr, TPN @53ml/hr, and NS @ 30ml/hr. Pt moving hands up, mittens in place but not tied to any thing. Skin around wrists and hands is intact, warm, and color is normal for ethnicity.Bed is in lowest position and locked. Call light within reach. Board updated. Will continue to monitor for changes Q1hr and PRN.
[2019-08-17] MEDS: POTASSIUM CHL 20MEQ/100ML 100 ML IV SCH ×4 (07:52→13:33)
--- NOTE | 2019-08-17 08:00 | NUR ---
CPAP Trial RT Matthew at bedside to start Pt on CPAP Trial. Pt awake moving arms, explained plan to start CPAP to try and extubate today. Pt moving head up and down when asked if she understands.
--- NOTE | 2019-08-17 08:36 | NUR ---
End of CPAP trial RT Matthew paged and at bedside to turn off CPAP and reinstate Vent settings. SPO2 93%, and BP 173/105 RR ranging from periods of 23 to high 40's for most of the trial time. Pt understanding directions on slowing down and taking deep breaths, but seems anxious and difficult for her to follow through commands, falling asleep and taking rapid short breaths. Will continue to monitor patient, and try CPAP trial at later time today.
--- NOTE | 2019-08-17 09:00 | NUR ---
COOLING MEASURES Started cooling measures with ice bags to groin and axillary area, and turned on fan.
[2019-08-17] MEDS: LEVOTHYROXINE SODIUM 100 MCG/5 ML INJ IV SCH (10:28)
[2019-08-17] MEDS: BUMETANIDE 2.5mg/10ml (0.25 mg/ml) INJ IV SCH (10:28)
[2019-08-17] MEDS: ENOXAPARIN SOD 40 MG/0.4 ML SYRINGE SC SCH (10:29)
[2019-08-17] MEDS: SODIUM CHLOR 0.9% PF (SALINE LOCK) 10ML VIAL/SYR IV SCH (10:30)
[2019-08-17] MEDS: ACETAMINOPHEN 650 MG RECT SUPP PR PRN ×2 (10:30→17:46)
--- NOTE | 2019-08-17 11:10 | NUR ---
MD Dr. Ray at bedside, Patient awake, Updated on patient status, morning Potassium level of 2.6 and pt's status during CPAP trial this morning. agrees to try CPAP trial again, and he will put new orders for more K riders. Pt is more awake and nodding yes or no at questions. Educated pt that she needs to calm her respirations into deep slow breaths, pt nodding yes when asked if understanding instructions. RT Matthew called for CPAP trial. Awaiting for RT at the moment. Will continue to monitor patient.
[2019-08-17] MEDS: BUDESONIDE (INHALATION) 0.5 MG/2 ML NEB NEB SCH ×2 (11:12→21:59)
[2019-08-17] MEDS ORDERED: LABETALOL HCL 5 MG/ML 4ML SYRINGE IV PRN (11:15)
[2019-08-17] MEDS ORDERED: VANCOMYCIN PER PHARMACY 0 MG IV SCH (11:15)
--- NOTE | 2019-08-17 11:32 | NUR ---
CPAP trial Rt Castro at bedside to start CPAP trial.
--- NOTE | 2019-08-17 11:35 | NUR ---
Respiratory note: PATIENT PLACED ON CPAP FOR WEANING TRIAL. SHE IS TOLERATING WELL AT THIS TIME. MANOJ HOFFMAN MADE AWARE OF CHANGE. WILL CONTINUE TO MONITOR PATIENT CLOSELY. RR: 14 VT: 646 SPO2: 94% HR: 83 BP: 168/82
--- NOTE | 2019-08-17 11:50 | NUR ---
BM Pt had large loose stool. Bath patient with basin, and changed all linens.
--- NOTE | 2019-08-17 13:05 | NUR ---
MD Solorzano Addendum: 08/17/19 at 1328 by DALTON GONZALES RN RN Dr. Mendez @ Bedside. Updated on pt's status, and results of CPAP trial and ABG. Dr. Mendez states OK for extubation. Rt aware.
--- NOTE | 2019-08-17 13:15 | NUR ---
BM Pt had second loose BM, cleaned pt.
--- NOTE | 2019-08-17 13:32 | NUR ---
EXTUBATION RT Matthew at bedside for extubation. Pt tolerated well.
[2019-08-17] MEDS ORDERED: EPINEPHrine HCL 0.5 ML NEB NEB ONE (13:45)
--- NOTE | 2019-08-17 13:54 | NUR ---
Respiratory note: PATIENT EXTUBATED PER DR. DYE'S BEDSIDE ORDER. PATIENT WAS EXTUBATED AT 1330. SHE WAS PLACED ON 40% COOL AEROSOL MASK; MODERATE STRIDOR NOTED AND RACEMIC EPI WAS ORDERED AND ADMINISTERED AT 1350. PATIENT STATES SHE FEELS FINE AND BREATHING FEELS NORMAL WITH NO DISTRESS NOYED. MANOJ HOFFMAN AWARE OF EXTUBATION, STRIDOR, AND ADMINISTRATION OF RACEMIC MED-NEB.
--- NOTE | 2019-08-17 14:10 | NUR ---
BM 3rd Loose bowel moment, liquid. Cleaned and changed patient.
[2019-08-17] MEDS: VANCOMYCIN 1GM/250ML 250 ML IV SCH (14:19)
[2019-08-17] MEDS: LABETALOL HCL 5 MG/ML ML 20ML VIAL IV PRN (17:12)
--- NOTE | 2019-08-17 17:40 | NUR ---
HIGH TEMP Pt's Temp is 100.8, administered Tylenol suppository and reinserted rectal temp probe. Cleaned pt from 4th BM. Pt assists in turning. No s/s of distress. Will continue to monitor Temp.
--- NOTE | 2019-08-17 18:10 | NUR ---
RT @ BEDSIDE RT Omid at bedside giving breathing treatment. Changed BIPAP to 4L NC, pt's SPO2 95. Patient has no s/s of distress. Hard for her to speak at the moment. Will continue to monitor.
--- NOTE | 2019-08-17 18:43 | NUR ---
COOLING MEASURES Applied ice pack to patients groin as cooling measures for temp at 100.9 rectal, and gave a patient a cup of ice chips. Pt tolerating ice chips.
[2019-08-17] MEDS ORDERED: TPN PER PHARMACY IV NR ×9 (20:00)
[2019-08-18] VITALS (12 sets, daily range): BP systolic 137–193; BP diastolic 71–109
[2019-08-18] MEDS: FAMOTIDINE (10MG/ML) 2ML VL IV SCH ×2 (01:19→15:07)
[2019-08-18] MEDS: VANCOMYCIN 1GM/250ML 250 ML IV SCH ×2 (01:19→14:31)
[2019-08-18] MEDS: LABETALOL HCL 5 MG/ML ML 20ML VIAL IV PRN ×3 (01:22→17:31)
[2019-08-18] MEDS: IPRATROPIUM BROM 0.5 MG/2.5ML INH SOL NEB SCH ×6 (02:11→23:35)
[2019-08-18] MEDS: ALBUTEROL SULF 2.5 MG/0.5ML(0.5%) NEB SOLN NEB SCH ×6 (02:11→23:35)
[2019-08-18 04:51] LABS: Basophils # (auto) 0 10 ^3/uL (0-0.2); Basophils % (auto) 0.2 % (0.0-2.0); Eosinophils # (auto) 0 10 ^3/uL (0-0.8); Eosinophils % (auto) 0.1 % (0.0-7.0); Hemoglobin 13.9 g/dL (12.2-16.2); Lymphocytes # (auto) 0.6 10 ^3/uL (0.4-5.4); Lymphocytes % (auto) 4.5 % (10.0-50.0); Mean Corpuscular Hgb Conc. 33.1 g/dL (32.0-36.0); Mean Corpuscular Volume 99.9 fL (80.0-100.0); Monocytes # (auto) 0.9 10 ^3/uL (0-1.3); Monocytes % (auto) 7.3 % (0.0-12.0); Neutrophils # (auto) 11.2 10 ^3/uL (1.6-8.6); Neutrophils % (auto) 87.9 % (37.0-80.0); Platelet Count (auto) 235 10^3/uL (140-450); Red Cell Distribution Width 15.2 % (11.8-14.3); White Blood Cell 12.7 10^3/uL (4.4-10.8)
[2019-08-18 05:20] LABS: Albumin 2.7 g/dL (3.4-5.0); BUN/Creatinine Ratio 19.4; Bilirubin, Total 1.1 mg/dL (0.2-1.0); Calcium 8.6 mg/dL (8.5-10.1); Magnesium 2.2 mg/dL (1.6-2.6); Phosphorus 2.4 mg/dL (2.5-4.90); Total Protein 6.6 g/dL (6.4-8.2)
[2019-08-18 05:29] LABS: Potassium 2.7 mmol/L (3.5-5.1)
[2019-08-18] MEDS: ACCU-CHEK COMFORT CURVE STRIP VI SCH ×5 (06:00→23:52)
[2019-08-18] MEDS: HYDROCORTISONE SOD SUCC 100 MG/2ML INJ VIAL IV SCH (06:00)
[2019-08-18] MEDS: LACTULOSE 20Gm/30ML SOLN PO SCH ×5 (06:00→23:52)
[2019-08-18] MEDS: InsuLIN REG 1unit/0.01ml Soln (100units/ml) SC SCH ×5 (06:00→23:55)
[2019-08-18] MEDS: PIPERACILLIN-TAZOB 3.375GM 100 ML IV SCH ×3 (06:00→21:19)
--- NOTE | 2019-08-18 07:00 | NUR ---
Received report from Ken. Patient awake in bed, receiving breathing tx. AO x4,moves all extremities. NSR,HR 69 BP 161/89 RR 25, report 0/10 pain. On 4L NC SPO@ 96%. Calm in no signs of distress. Arcos catheter to gravity, clear yellow urine. On TPN 63ml/hr. Patient extubated 08/17/19. Will continue to monitor.
[2019-08-18] MEDS: LEVOTHYROXINE SODIUM 50 MCG TAB PO SCH (07:02)
[2019-08-18] MEDS: POTASSIUM CHL 20MEQ/100ML 100 ML IV SCH ×2 (07:29→10:47)
--- NOTE | 2019-08-18 09:00 | NUR ---
Patient able to help reposition in bed, eating ice chips and very small amounts of thickened jello-awaiting swall evaluation.
[2019-08-18] MEDS: SODIUM CHLOR 0.9% PF (SALINE LOCK) 10ML VIAL/SYR IV SCH ×2 (10:00→21:19)
--- NOTE | 2019-08-18 10:00 | NUR ---
RN titrated O2 to 2L which is her home level as patient SPO2 was 97%.
[2019-08-18] MEDS: BUDESONIDE (INHALATION) 0.5 MG/2 ML NEB NEB SCH ×2 (10:26→23:35)
[2019-08-18] MEDS: BUMETANIDE 2.5mg/10ml (0.25 mg/ml) INJ IV SCH (10:41)
[2019-08-18] MEDS: ENOXAPARIN SOD 40 MG/0.4 ML SYRINGE SC SCH (10:42)
--- NOTE | 2019-08-18 10:50 | NUR ---
Hospitalist bedside. New orders for transfer to [facility], for speech evaluation, and to taper TPN.
--- NOTE | 2019-08-18 10:55 | NUR ---
bedside. New orders to downgrade patient to [facility], to D/C TPN and for swallow evaluation.
--- NOTE | 2019-08-18 11:00 | NUR ---
Patient receiving Q4hrs breathing tx, on O2 2L which is patients baseline at home. AO x4, moves all extremities.
--- NOTE | 2019-08-18 11:30 | NUR ---
Nutrition bedside. Will make recommendations.
[2019-08-18] MEDS ORDERED: POTASSIUM PHOSPHATE 44 MEQ in D5W 5% 250 ML IV ONE (13:00)
--- NOTE | 2019-08-18 13:00 | NUR ---
Patient awake in bed, eating ice chips-calm.
[2019-08-18] MEDS: methylPREDNISolone SOD SUCC 40 MG/ML VL IV SCH ×2 (14:33→21:19)
--- NOTE | 2019-08-18 14:46 | NUR ---
Nutrition Followup Notes Wt: 92.0 kg Pt was extubated yesterday, awake, NPO, and off TPN and waiting for a swallow eval. Pt with no distress per RN. Will continue to monitor PO status, skin status, pertinent labs and weight trends. Will f/u in 2-3 days. Est energy needs 2712-4288 kcal (18-20 kcal/kg BW 91.1kg) , Est protein needs 55-68g (0.6-0.75g/kg BW 91.1g/kg r/t CKD 3 no HD). Will reassess prn. LABS: GLU 131 H, Alb 2.7 L, AST/ALT/ALK PHOS 74/147/134 H, Bili 1.1 H, GI: Pt with daily BM per RN doc BS: 11 high risk Refer to wound assessment report for full details. PES: Altered nutrition related labs r/t current and chronic medical condition aeb pt with with elevated RFTs, hyperglycemia, hypoalb Comments 1) Refer pt to OPd on DC. 2) Advance diet as medially feasible. 3) If pt remains NPO for the next 48 hrs, consider Jevity 1.2 at 50 ml/hr per MD approval. 4) Continue current plan of care
--- NOTE | 2019-08-18 16:13 | NUR ---
Speech, swallow evaluation completed, patient to be put on pureed diet.
--- NOTE | 2019-08-18 16:16 | NUR ---
SWALLOW EVALUATED. PATIENT ABLE TO FOLLOW ONE STEP COMMANDS. PATIENT HAS NO TEETH OR DENTURES. PATIENT ABLE TO TOLERATE PUREE DIET TEXTURE WITH THIN LIQUIDS WITH NO OVERT SIGNS OR SYMPTOMS OF ASPIRATION. NURSING NOTIFIED.
--- NOTE | 2019-08-18 16:32 | NUR ---
Patient being transferred to Tele bed 17A, nurse will be RAQUEL. RN called to give report.
--- NOTE | 2019-08-18 17:00 | NUR ---
Received a patient from ICU, patient is awake, alert, oriented x 2 and verbally responsive. On oxygen 3 L, no respiratory distress noted. Skin is warm and dry to touch. Placed a call light within reach, will continue to monitor.
--- NOTE | 2019-08-18 19:20 | NUR ---
Opening Shift Note Assumed care of patient, awake and alert. No S/S of distress/SOB or pain. Instructed on POC and to call for assist PRN. Fall precaution measures in place, will continue to monitor for changes Q1hr and PRN.
[2019-08-18] MEDS ORDERED: TPN PER PHARMACY IV NR ×8 (20:00)
[2019-08-19] MEDS: VANCOMYCIN 1GM/250ML 250 ML IV SCH ×2 (01:22→13:02)
[2019-08-19] MEDS: FAMOTIDINE (10MG/ML) 2ML VL IV SCH (02:13)
[2019-08-19] MEDS: ALBUTEROL SULF 2.5 MG/0.5ML(0.5%) NEB SOLN NEB SCH ×6 (02:29→22:27)
[2019-08-19] MEDS: IPRATROPIUM BROM 0.5 MG/2.5ML INH SOL NEB SCH ×6 (02:29→22:27)
[2019-08-19 05:00] VITALS: BP 150/120
[2019-08-19] MEDS: LABETALOL HCL 5 MG/ML ML 20ML VIAL IV PRN (05:38)
[2019-08-19] MEDS: LACTULOSE 20Gm/30ML SOLN PO SCH ×3 (06:00→17:57)
[2019-08-19] MEDS: InsuLIN REG 1unit/0.01ml Soln (100units/ml) SC SCH ×3 (06:00→18:00)
[2019-08-19] MEDS: methylPREDNISolone SOD SUCC 40 MG/ML VL IV SCH (06:07)
[2019-08-19] MEDS: LEVOTHYROXINE SODIUM 50 MCG TAB PO SCH (06:08)
[2019-08-19] MEDS: PIPERACILLIN-TAZOB 3.375GM 100 ML IV SCH (06:08)
[2019-08-19 06:19] LABS: Basophils # (auto) 0 10 ^3/uL (0-0.2); Basophils % (auto) 0.1 % (0.0-2.0); Eosinophils # (auto) 0 10 ^3/uL (0-0.8); Eosinophils % (auto) 0.1 % (0.0-7.0); Hematocrit 43.4 % (36.0-46.0); Hemoglobin 14.5 g/dL (12.2-16.2); Lymphocytes # (auto) 0.9 10 ^3/uL (0.4-5.4); Mean Corpuscular Hemoglobin 33.3 pg (28.0-32.0); Mean Corpuscular Hgb Conc. 33.5 g/dL (32.0-36.0); Mean Corpuscular Volume 99.4 fL (80.0-100.0); Monocytes # (auto) 1.2 10 ^3/uL (0-1.3); Neutrophils # (auto) 12.8 10 ^3/uL (1.6-8.6); Neutrophils % (auto) 85.8 % (37.0-80.0); Nucleated Red Blood Cells % 0.1 %; Platelet Count (auto) 224 10^3/uL (140-450); Red Blood Cells 4.37 10^6/uL (4.0-5.20); Red Cell Distribution Width 14.8 % (11.8-14.3); White Blood Cell 14.9 10^3/uL (4.4-10.8)
[2019-08-19] MEDS: ACCU-CHEK COMFORT CURVE STRIP VI SCH ×3 (06:21→18:01)
[2019-08-19 06:56] LABS: Potassium 3.1 mmol/L (3.5-5.1)
[2019-08-19 07:15] LABS: Albumin 2.8 g/dL (3.4-5.0); BUN/Creatinine Ratio 23.1; Bilirubin, Total 1.4 mg/dL (0.2-1.0); Magnesium 2.2 mg/dL (1.6-2.6); Phosphorus 3.9 mg/dL (2.5-4.90); Total Protein 6.8 g/dL (6.4-8.2)
[2019-08-19 09:00] VITALS: BP 141/86
[2019-08-19] MEDS: ENOXAPARIN SOD 40 MG/0.4 ML SYRINGE SC SCH (09:49)
[2019-08-19] MEDS: SODIUM CHLOR 0.9% PF (SALINE LOCK) 10ML VIAL/SYR IV SCH ×2 (09:50→21:26)
[2019-08-19] MEDS: BUMETANIDE 2.5mg/10ml (0.25 mg/ml) INJ IV SCH (09:50)
[2019-08-19] MEDS: BUDESONIDE (INHALATION) 0.5 MG/2 ML NEB NEB SCH ×2 (10:21→22:27)
[2019-08-19] MEDS ORDERED: POTASSIUM CHL 20 Meq TABLET PO ONE (10:45)
--- NOTE | 2019-08-19 12:48 | NUR ---
Insulin Held Held the patient's 12pm Insulin as she did not eat much breakfast and currently refused lunch. Will try again to feed her later but will hold insulin dose.
[2019-08-19 13:00] VITALS: BP 138/79
[2019-08-19 17:00] VITALS: BP 142/98
--- NOTE | 2019-08-19 18:32 | NUR ---
Respiratory note: AT BEDSIDE FOR MED NEB TX. PT TOLERATING WELL VIA MASK. WILL CONTINUE TO MONITOR.
[2019-08-19 22:00] VITALS: BP 119/87
[2019-08-19] MEDS ORDERED: methylPREDNISolone SOD SUCC 40 MG/ML VL IV SCH (22:00)
[2019-08-20] MEDS: InsuLIN REG 1unit/0.01ml Soln (100units/ml) SC SCH ×4 (00:26→18:30)
[2019-08-20] MEDS: ACCU-CHEK COMFORT CURVE STRIP VI SCH ×4 (00:26→18:28)
[2019-08-20] MEDS: VANCOMYCIN 1GM/250ML 250 ML IV SCH ×2 (00:46→17:13)
[2019-08-20] MEDS: IPRATROPIUM BROM 0.5 MG/2.5ML INH SOL NEB SCH ×6 (02:32→22:01)
[2019-08-20] MEDS: ALBUTEROL SULF 2.5 MG/0.5ML(0.5%) NEB SOLN NEB SCH ×6 (02:32→22:01)
[2019-08-20 05:00] VITALS: BP 150/89
[2019-08-20] MEDS: LACTULOSE 20Gm/30ML SOLN PO SCH ×5 (06:40→18:31)
[2019-08-20] MEDS: LEVOTHYROXINE SODIUM 50 MCG TAB PO SCH (06:41)
[2019-08-20] MEDS: BUDESONIDE (INHALATION) 0.5 MG/2 ML NEB NEB SCH ×2 (07:01→17:48)
[2019-08-20 07:12] LABS: Basophils # (auto) 0 10 ^3/uL (0-0.2); Basophils % (auto) 0.3 % (0.0-2.0); Eosinophils # (auto) 0 10 ^3/uL (0-0.8); Eosinophils % (auto) 0.3 % (0.0-7.0); Hemoglobin 14.6 g/dL (12.2-16.2); Lymphocytes # (auto) 0.7 10 ^3/uL (0.4-5.4); Lymphocytes % (auto) 5.4 % (10.0-50.0); Mean Corpuscular Hemoglobin 32.6 pg (28.0-32.0); Mean Corpuscular Hgb Conc. 32.4 g/dL (32.0-36.0); Mean Corpuscular Volume 100.5 fL (80.0-100.0); Monocytes % (auto) 7.6 % (0.0-12.0); Neutrophils # (auto) 11.4 10 ^3/uL (1.6-8.6); Neutrophils % (auto) 86.4 % (37.0-80.0); Nucleated Red Blood Cells % 0.1 %; Platelet Count (auto) 228 10^3/uL (140-450); Red Blood Cells 4.48 10^6/uL (4.0-5.20); White Blood Cell 13.2 10^3/uL (4.4-10.8)
[2019-08-20 07:29] LABS: Potassium 3.5 mmol/L (3.5-5.1)
--- NOTE | 2019-08-20 07:39 | NUR ---
CLOSING NOTE Endorsed care to day shift RN.
--- NOTE | 2019-08-20 07:45 | NUR ---
Opening shift note Assumed care of patient from NOC RN. Patient is AOX3 no s/s of distress noted. Bed is in lowest locked positon, side rails up x2, and call light is within reach. Updated patient on plan of care, patient verbalized understanding, reinforcement is needed. Will continue to monitor q1hr and PRN.
[2019-08-20 09:00] VITALS: BP_SYST 137; BP_SYST 151; BP_DIAS 62; BP_DIAS 79
[2019-08-20] MEDS ORDERED: levoFLOXacin 500MG 100 ML IV SCH (10:00)
--- NOTE | 2019-08-20 11:15 | NUR ---
WOUND CARE NOTE: PATIENT BEING MONITORED FOR SKIN INTEGRITY D/T LOW FOX/INTUBATION STATUS. CURRENTLY, PATIENT IS ON TELE UNIT, HAS BEEN EXTUBATED, AWAKE, ALERT, ORIENTED X 3, IN NO STATED PAIN. PATIENT SITTING IN HIGH RENDON'S POSITION. CURRENT FOX SCORE IS 13. PATIENT IS NOTED TO BE ABLE TO SELF TURN/REPOSITION SELF, WITH MINIMAL ASSISTANCE BY STAFF. SHE CONTINUES TO BE WOUND FREE AT THIS TIME. SKIN/WOUND CARE PLAN UPDATED. RECOMMEND: CONTINUATION WITH ALL WOUND CARE ORDERS PREVIOUSLY PRESCRIBED BY . WOUND CARE TEAM WILL CONTINUE TO MONITOR.
[2019-08-20] MEDS: FAMOTIDINE 20 MG TAB PO SCH (11:53)
[2019-08-20] MEDS: ENOXAPARIN SOD 40 MG/0.4 ML SYRINGE SC SCH (11:53)
[2019-08-20] MEDS: levoFLOXacin 500 MG TAB PO SCH (11:53)
[2019-08-20] MEDS: SODIUM CHLOR 0.9% PF (SALINE LOCK) 10ML VIAL/SYR IV SCH ×2 (11:54→22:00)
[2019-08-20 13:00] VITALS: BP 141/84
[2019-08-20 17:21] VITALS: BP 146/90
[2019-08-20 17:55] VITALS: BP 151/79
--- NOTE | 2019-08-20 19:20 | NUR ---
Opening note Assumed care of patient. Patient alert and orientated x3. Patient has short times of confusion. Re orient her and she verbalizes understanding. No sob or distress noted. Bed locked in lowest position and side rails up x2. bed alarm on. POC reviewed. No questions at this time. WILL continue to monitor.
--- NOTE | 2019-08-20 19:27 | NUR ---
End of shift note Endorsed care to NOC MANOJ Maza. No s/s of distress noted.
[2019-08-20 22:00] VITALS: BP 120/65
--- NOTE | 2019-08-21 | NUR ---
Pt refused lactolose. Patient had a bowel movement. 08/19 refusing med at this time. will continue to monitor.
[2019-08-21] MEDS: IPRATROPIUM BROM 0.5 MG/2.5ML INH SOL NEB SCH ×6 (02:06→23:38)
[2019-08-21] MEDS: ALBUTEROL SULF 2.5 MG/0.5ML(0.5%) NEB SOLN NEB SCH ×6 (02:06→23:38)
[2019-08-21 05:00] VITALS: BP 151/84
[2019-08-21] MEDS: ACCU-CHEK COMFORT CURVE STRIP VI SCH ×5 (05:58→23:27)
[2019-08-21] MEDS: LEVOTHYROXINE SODIUM 50 MCG TAB PO SCH (05:58)
[2019-08-21] MEDS: InsuLIN REG 1unit/0.01ml Soln (100units/ml) SC SCH ×5 (05:58→23:26)
[2019-08-21] MEDS: VANCOMYCIN 1GM/250ML 250 ML IV SCH ×2 (05:58→19:59)
[2019-08-21] MEDS: LACTULOSE 20Gm/30ML SOLN PO SCH ×5 (05:58→23:12)
[2019-08-21 06:02] LABS: Basophils # (auto) 0 10 ^3/uL (0-0.2); Basophils % (auto) 0.2 % (0.0-2.0); Eosinophils # (auto) 0.3 10 ^3/uL (0-0.8); Eosinophils % (auto) 3.4 % (0.0-7.0); Hematocrit 39.4 % (36.0-46.0); Lymphocytes # (auto) 1.2 10 ^3/uL (0.4-5.4); Lymphocytes % (auto) 12.9 % (10.0-50.0); Mean Corpuscular Hemoglobin 32.9 pg (28.0-32.0); Mean Corpuscular Hgb Conc. 32.9 g/dL (32.0-36.0); Mean Corpuscular Volume 100.2 fL (80.0-100.0); Monocytes # (auto) 0.9 10 ^3/uL (0-1.3); Monocytes % (auto) 9.4 % (0.0-12.0); Neutrophils # (auto) 7.2 10 ^3/uL (1.6-8.6); Neutrophils % (auto) 74.1 % (37.0-80.0); Platelet Count (auto) 206 10^3/uL (140-450); Red Blood Cells 3.93 10^6/uL (4.0-5.20); Red Cell Distribution Width 15.1 % (11.8-14.3); White Blood Cell 9.7 10^3/uL (4.4-10.8)
[2019-08-21 06:23] LABS: BUN/Creatinine Ratio 23.1; Calcium 9.1 mg/dL (8.5-10.1)
[2019-08-21 06:25] LABS: Potassium 2.8 mmol/L (3.5-5.1)
--- NOTE | 2019-08-21 06:40 | NUR ---
Critical lab Recieved critical lab potasium 2.8. Ruben from LAB. Will page hospitalist for new orders.
--- NOTE | 2019-08-21 06:58 | NUR ---
Paged hospitalist New orders given will follow through or let day shift now.
--- NOTE | 2019-08-21 06:58 | NUR ---
Respiratory note: At bedside for medneb tx, found pt with nasal cannula off, SPO2 84% on room air. Administered breathing tx, no adverse reactions. Placed pt on 3lpm nasal cannula, SPO2 95%. Provided education and advised pt to leave the cannula on. Pt verbalized agreement.
[2019-08-21] MEDS ORDERED: POTASSIUM CHLORIDE 60 MEQ, LIDOCAINE 1% (LOCAL ANESTH.) 6 ML in SODIUM CHL 0.9% 500 ML IV ONE (07:15)
[2019-08-21] MEDS: POTASSIUM CHL 20MEQ/100ML 100 ML IV SCH ×3 (08:17→12:51)
--- NOTE | 2019-08-21 08:20 | NUR ---
cLOSING NOTE ENDORSED CARE TO DAY SHIFT MANOJ GARCÍA
[2019-08-21 08:30] VITALS: BP 121/75
[2019-08-21] MEDS: ENOXAPARIN SOD 40 MG/0.4 ML SYRINGE SC SCH (09:43)
[2019-08-21] MEDS: predniSONE 20 MG TAB PO SCH (09:44)
[2019-08-21] MEDS: FAMOTIDINE 20 MG TAB PO SCH (09:44)
[2019-08-21] MEDS: levoFLOXacin 500 MG TAB PO SCH (09:44)
[2019-08-21] MEDS: BUMETANIDE 1 MG TAB PO SCH (09:44)
[2019-08-21] MEDS: SODIUM CHLOR 0.9% PF (SALINE LOCK) 10ML VIAL/SYR IV SCH ×2 (09:44→22:21)
[2019-08-21] MEDS: BUDESONIDE (INHALATION) 0.5 MG/2 ML NEB NEB SCH ×2 (10:17→18:42)
--- NOTE | 2019-08-21 10:17 | NUR ---
Respiratory note: Found pt with nasal cannula off, SPO2 86%. Administered breathing tx and placed pt back on 3lpm nasal cannula. Educated pt and advised to keep O2 on. SPO2 now maintaining at 98%.
--- NOTE | 2019-08-21 12:17 | NUR ---
Nutrition Followup Notes Wt: 80.9 kg Pt was extubated sleeping with no family by bedside. per records pt with drug abuse. pt is currently on CCHO 60 gm cardiac pureed diet with inadequate PO of 25% x 3 per RN doc Est energy needs 5821-6926 kcal (18-20 kcal/kg BW 91.1kg), Est protein needs 55-68g (0.6-0.75g/kg BW 91.1g/kg r/t CKD 3 no HD). Will reassess prn. LABS: BUN 28 H, CREAT 1.21 H, CO2 36 H, GI: Pt with daily BM per RN doc BS: 16 mod risk Refer to wound assessment report for full details. PES: Altered nutrition related labs r/t current and chronic medical condition aeb pt with with elevated RFTs, hyperglycemia, hypoalb Comments 1) Refer pt to OPd on DC. 2) consider Glucerna 1 carton bid if PO continues to be low. 3) continue assistance with meals. 4) Continue current plan of care. F/u mod 3-5 days
[2019-08-21 13:21] VITALS: BP 138/92
--- NOTE | 2019-08-21 14:30 | NUR ---
Respiratory note: At bedside for medneb tx, found pt sleeping with nasal cannula off, SPO2 82%. Administered medneb tx, and placed back on 3lpm nasal cannula. Educated pt on importance of wearing O2, pt verbalized understanding. SPO2 now maintaining at 95%, no s/s of distress.
[2019-08-21 17:23] VITALS: BP 159/83
--- NOTE | 2019-08-21 19:15 | NUR ---
assumed care, pt. awake, oriented x2, no c/ o pain, no sob.
[2019-08-21 22:00] VITALS: BP 139/79
--- NOTE | 2019-08-21 22:40 | NUR ---
pt. t- 100.4, cooling measures applied, blanket removed, to keep monitor.
[2019-08-22] MEDS: IPRATROPIUM BROM 0.5 MG/2.5ML INH SOL NEB SCH ×6 (02:34→22:45)
[2019-08-22] MEDS: ALBUTEROL SULF 2.5 MG/0.5ML(0.5%) NEB SOLN NEB SCH ×6 (02:34→22:45)
[2019-08-22 05:00] VITALS: BP 141/84
[2019-08-22] MEDS: InsuLIN REG 1unit/0.01ml Soln (100units/ml) SC SCH ×4 (06:00→23:20)
[2019-08-22] MEDS: LACTULOSE 20Gm/30ML SOLN PO SCH ×4 (06:00→23:20)
[2019-08-22] MEDS: ACCU-CHEK COMFORT CURVE STRIP VI SCH ×4 (06:01→23:21)
[2019-08-22] MEDS: LEVOTHYROXINE SODIUM 50 MCG TAB PO SCH (06:01)
[2019-08-22 06:52] LABS: Calcium 9.2 mg/dL (8.5-10.1); Magnesium 2.4 mg/dL (1.6-2.6)
[2019-08-22 06:55] LABS: BUN/Creatinine Ratio 15.4
--- NOTE | 2019-08-22 07:30 | NUR ---
Opening Shift Note Assumed care of patient, awake and alert. No S/S of distress/SOB or pain. Instructed on POC and to call for assist PRN, Call light within reach, bed alarm on, will continue to monitor for changes Q1hr and PRN.
[2019-08-22 09:00] VITALS: BP 140/79
[2019-08-22] MEDS: VANCOMYCIN 1GM/250ML 250 ML IV SCH (09:43)
[2019-08-22] MEDS: BUMETANIDE 1 MG TAB PO SCH (09:43)
[2019-08-22] MEDS: ENOXAPARIN SOD 40 MG/0.4 ML SYRINGE SC SCH (09:43)
[2019-08-22] MEDS: FAMOTIDINE 20 MG TAB PO SCH (09:43)
[2019-08-22] MEDS: levoFLOXacin 500 MG TAB PO SCH (09:43)
[2019-08-22] MEDS: SODIUM CHLOR 0.9% PF (SALINE LOCK) 10ML VIAL/SYR IV SCH ×2 (09:44→21:21)
[2019-08-22] MEDS: predniSONE 20 MG TAB PO SCH (09:44)
--- NOTE | 2019-08-22 09:45 | NUR ---
AT BEDSIDE DR JIMENEZ AT BEDSIDE, DISCUSSING POC WITH PT, NEW ORDERS RECEIVED FOR POTASSIUM 40MEQ POX1, CONT CARE
--- NOTE | 2019-08-22 10:17 | NUR ---
PHYSICAL THERAPY PT AMBULATING WITH PHYSICAL THERAPY USING FWW, PT TOLERATING, NO C/O SOB, PAIN OR ANY OTHER DISCOMFORT, CONT CARE
[2019-08-22] MEDS ORDERED: POTASSIUM CHL 20 Meq TABLET PO ONE (10:45)
[2019-08-22] MEDS: BUDESONIDE (INHALATION) 0.5 MG/2 ML NEB NEB SCH ×2 (11:17→22:45)
[2019-08-22 13:00] VITALS: BP 150/84
--- NOTE | 2019-08-22 14:16 | NUR ---
Respiratory note: PT REFUSED Q4 1400 TX. PT IN NO DISTRESS AT THIS TIME.
[2019-08-22 17:00] VITALS: BP 128/82
--- NOTE | 2019-08-22 19:10 | NUR ---
ASSUMED CARE, PT. AWAKE, ORIENTED X2, NO C/O PAIN, NOT IN DISTRESS.
[2019-08-22 22:00] VITALS: BP 146/75
--- NOTE | 2019-08-22 22:45 | NUR ---
Respiratory note: PT REFUSED SCHED MED NEB TX AT THIS TIME. NO S/S OF SOB OR RESPIRATORY DISTRESS. WILL CONTINUE TO MONITOR.
--- NOTE | 2019-08-23 02:47 | NUR ---
Respiratory note: PT REFUSED SCHED MED NEB TX AT THIS TIME. NO S/S OF SOB OR RESPIRATORY DISTRESS. WILL CONTINUE TO MONITOR.
[2019-08-23 05:00] VITALS: BP 146/94
[2019-08-23] MEDS: InsuLIN REG 1unit/0.01ml Soln (100units/ml) SC SCH (05:40)
[2019-08-23] MEDS: ACCU-CHEK COMFORT CURVE STRIP VI SCH (05:41)
[2019-08-23] MEDS: LACTULOSE 20Gm/30ML SOLN PO SCH ×4 (06:00→23:45)
[2019-08-23 06:03] LABS: Basophils # (auto) 0 10 ^3/uL (0-0.2); Basophils % (auto) 0.3 % (0.0-2.0); Eosinophils # (auto) 0 10 ^3/uL (0-0.8); Eosinophils % (auto) 0.2 % (0.0-7.0); Hematocrit 41.2 % (36.0-46.0); Hemoglobin 13.5 g/dL (12.2-16.2); Lymphocytes # (auto) 0.9 10 ^3/uL (0.4-5.4); Lymphocytes % (auto) 9.2 % (10.0-50.0); Mean Corpuscular Hgb Conc. 32.8 g/dL (32.0-36.0); Mean Corpuscular Volume 100.5 fL (80.0-100.0); Monocytes # (auto) 0.8 10 ^3/uL (0-1.3); Neutrophils # (auto) 7.9 10 ^3/uL (1.6-8.6); Neutrophils % (auto) 82.3 % (37.0-80.0); Nucleated Red Blood Cells % 0.1 %; Platelet Count (auto) 263 10^3/uL (140-450); White Blood Cell 9.6 10^3/uL (4.4-10.8)
[2019-08-23] MEDS: LEVOTHYROXINE SODIUM 50 MCG TAB PO SCH (06:08)
[2019-08-23 06:28] LABS: BUN/Creatinine Ratio 15.6; Calcium 9.3 mg/dL (8.5-10.1)
[2019-08-23] MEDS: IPRATROPIUM BROM 0.5 MG/2.5ML INH SOL NEB SCH ×5 (06:29→22:14)
[2019-08-23] MEDS: ALBUTEROL SULF 2.5 MG/0.5ML(0.5%) NEB SOLN NEB SCH ×5 (06:30→22:15)
[2019-08-23 08:00] VITALS: BP 141/70
[2019-08-23] MEDS: BUMETANIDE 1 MG TAB PO SCH (10:00)
[2019-08-23] MEDS: levoFLOXacin 500 MG TAB PO SCH (10:00)
[2019-08-23] MEDS: ENOXAPARIN SOD 40 MG/0.4 ML SYRINGE SC SCH (10:01)
[2019-08-23] MEDS: predniSONE 20 MG TAB PO SCH (10:01)
[2019-08-23] MEDS: FAMOTIDINE 20 MG TAB PO SCH (10:01)
[2019-08-23] MEDS: SODIUM CHLOR 0.9% PF (SALINE LOCK) 10ML VIAL/SYR IV SCH ×2 (10:07→22:05)
--- NOTE | 2019-08-23 10:54 | NUR ---
MD was at bedside - notified MD of potassium level Dr. Ray was at bedside with this RN. Notified MD of patients current potassium level. MD verbalized understanding. MD to place orders.
[2019-08-23] MEDS ORDERED: LEVOTHYROXINE SODIUM 100 MCG/5 ML INJ IV ONE (11:00)
[2019-08-23] MEDS ORDERED: POTASSIUM CHL 20 Meq TABLET PO ONE (11:00)
[2019-08-23] MEDS ORDERED: amLODIPine BESYLATE 5 MG TAB PO ONE (11:00)
[2019-08-23] MEDS: BUDESONIDE (INHALATION) 0.5 MG/2 ML NEB NEB SCH ×2 (11:37→22:14)
[2019-08-23 12:00] VITALS: BP 146/80
--- NOTE | 2019-08-23 12:00 | NUR ---
Medication held - Lactulose Lactulose held due to patient having multiple loose BM. Notified Dr. Ray. verbalized understanding.
--- NOTE | 2019-08-23 12:30 | NUR ---
Arcos catheter removed per MD order Arcos catheter removed with aseptic technique after deflation of catheter balloon. Patient tolerated well. 600 ml of clear yellow urine drained from catheter bag.
--- NOTE | 2019-08-23 12:32 | NUR ---
Telemonitor removed and returned to telemonitor tech per MD order.
--- NOTE | 2019-08-23 13:09 | NUR ---
Patient had post-void urine. Patient denies pain.
--- NOTE | 2019-08-23 14:00 | NUR ---
Respiratory note: PT REFUSED 1400 MEDNEB. PT IS IN NO DISTRESS AT THIS TIME.
[2019-08-23 17:00] VITALS: BP 134/87
--- NOTE | 2019-08-23 17:03 | NUR ---
Medication held - Lactulose Lactulose held due to patient having multiple loose BM. aware.
--- NOTE | 2019-08-23 18:45 | NUR ---
Closing note patient resting in bed with even and unlabored respirations, no distress noted. Fall precautions in place with call light within reach; bed alarm on for safety.
--- NOTE | 2019-08-23 19:06 | NUR ---
Care endorsed to MANOJ King.
[2019-08-23 20:17] VITALS: BP 134/87
[2019-08-23 22:00] VITALS: BP 142/72
[2019-08-24] MEDS: ALBUTEROL SULF 2.5 MG/0.5ML(0.5%) NEB SOLN NEB SCH ×4 (02:40→14:12)
[2019-08-24] MEDS: IPRATROPIUM BROM 0.5 MG/2.5ML INH SOL NEB SCH ×4 (02:40→14:12)
--- NOTE | 2019-08-24 02:41 | NUR ---
Respiratory note: PT REFUSING MED NEB TX. PT YELLED IM SO MAD RIGHT NOW. PT SEEMS AGITATED TRIED GETTING OUT OF BED. WILL COMMUNICATE PTS COMPLAINTS TO RN.
[2019-08-24 05:00] VITALS: BP 128/74
[2019-08-24] MEDS: LEVOTHYROXINE SODIUM 50 MCG TAB PO SCH (05:24)
[2019-08-24] MEDS: LACTULOSE 20Gm/30ML SOLN PO SCH ×2 (05:24→11:34)
[2019-08-24 08:00] VITALS: BP 108/79
--- NOTE | 2019-08-24 08:00 | NUR ---
OPENING SHIFT NOTE ASSUMED CARE OF PATIENT AWAKE AND ALERT X3. PATIENT'S EMOTIONS ARE LABILE, ONE MOMENT SHE IS CRYING AND THE NEXT SHE IS LAUGHING. ATTEMPTED TO UPDATE PATIENT ON POC TO WHICH SHE REPLIED "I WANNA GO HOME!". BED IS IN LOWEST, LOCKED POSITION WITH SIDE RAILS UP X2, CALL LIGHT WITHIN REACH, AND BED ALARM ON FOR SAFETY. WILL CONTINUE TO MONITOR Q1H AND PRN.
[2019-08-24] MEDS: SODIUM CHLOR 0.9% PF (SALINE LOCK) 10ML VIAL/SYR IV SCH (09:49)
[2019-08-24] MEDS: BUMETANIDE 1 MG TAB PO SCH (09:50)
[2019-08-24] MEDS: FAMOTIDINE 20 MG TAB PO SCH (09:51)
[2019-08-24] MEDS: levoFLOXacin 500 MG TAB PO SCH (09:51)
[2019-08-24] MEDS ORDERED: amLODIPine BESYLATE 5 MG TAB PO SCH (10:00)
[2019-08-24] MEDS ORDERED: predniSONE 20 MG TAB PO SCH (10:00)
[2019-08-24] MEDS ORDERED: LEVOTHYROXINE SODIUM 100 MCG/5 ML INJ IV SCH (10:00)
--- NOTE | 2019-08-24 11:18 | NUR ---
1000 08/24/19 - Faxed to [facility] at [phone] and [facility] at [phone] face sheet, order for home walker, H/P, labs, meds and discharge summary. Pending review and approval.
--- NOTE | 2019-08-24 11:42 | NUR ---
D/C planning Regarding social service consult for walker. Faxed clinical information to [facility]. XAVI Greer will obtain authorization. Per Killian with [facility] walker will be deliver to the front lobby between 11:30-13:30. Informed MANOJ Arevalo.
[2019-08-24 12:00] VITALS: BP 137/75
[2019-08-24] MEDS: BUDESONIDE (INHALATION) 0.5 MG/2 ML NEB NEB SCH (12:00)
--- NOTE | 2019-08-24 16:29 | NUR ---
Discharge instructions given as ordered. Encourage to follow up with PMD as instructed. All questions and concerns addressed. Patient verbalized understanding. PICC line removed with catheter intact, pressure dressing applied. Patient taken to vehicle via wheelchair with all personal belongings, accompanied by staff. No distress noted at time of departure.
--- NOTE | 2019-08-24 17:10 | NUR ---
re-assessment Per consult Dc planning. Patient will return home with family and fww. Daniela satisfied fww order. Addendum: 08/24/19 at 1713 by Page Pedroza Amended: Links added.
== END 2019-08-24 16:20 | disposition home or self-care (01) | DRG 720 ==
LOC: EDBD 07:34 → ER 07:34 → TELE 07:35 → ICU WEST 17:42 → TELE-CENTR 08-18 17:13 → CENTRAL 08-23 12:36
PROVIDERS: ADMIT Internal Medicine; ATTEND Internal Medicine
PROC: 5A1955Z Respiratory Ventilation, Greater than 96 Consecutive Hours (ICD-10-PCS; principal; 2019-08-08)
PROC: 0BH17EZ Insertion of Endotracheal Airway into Trachea, Via Natural or Artificial Opening (ICD-10-PCS; 2019-08-08)
PROC: 02HV33Z Insertion of Infusion Device into Superior Vena Cava, Percutaneous Approach (ICD-10-PCS; 2019-08-09)
PROC: 5A09357 Assistance with Respiratory Ventilation, Less than 24 Consecutive Hours, Continuous Positive Airway Pressure (ICD-10-PCS; 2019-08-17)
DX: A41.9 Sepsis, unspecified organism (principal); R65.21 Severe sepsis with septic shock; J18.9 Pneumonia, unspecified organism; J96.01 Acute respiratory failure with hypoxia; E87.2 Acidosis; E11.22 Type 2 diabetes mellitus with diabetic chronic kidney disease; N18.3 Chronic kidney disease, stage 3 (moderate); J44.1 Chronic obstructive pulmonary disease with (acute) exacerbation; E27.40 Unspecified adrenocortical insufficiency; N39.0 Urinary tract infection, site not specified; Z68.31 Body mass index [BMI] 31.0-31.9, adult; E66.9 Obesity, unspecified; F15.10 Other stimulant abuse, uncomplicated; E87.6 Hypokalemia; J45.901 Unspecified asthma with (acute) exacerbation; I12.9 Hypertensive chronic kidney disease with stage 1 through stage 4 chronic kidney disease, or unspecified chronic kidney disease; J44.0 Chronic obstructive pulmonary disease with (acute) lower respiratory infection; D75.89 Other specified diseases of blood and blood-forming organs; E03.9 Hypothyroidism, unspecified; Z20.828 Contact with and (suspected) exposure to other viral communicable diseases; E11.65 Type 2 diabetes mellitus with hyperglycemia; F17.210 Nicotine dependence, cigarettes, uncomplicated; R18.8 Other ascites; J98.11 Atelectasis; E66.3 Overweight; R94.6 Abnormal results of thyroid function studies; Z80.0 Family history of malignant neoplasm of digestive organs; Z79.899 Other long term (current) drug therapy; Z82.0 Family history of epilepsy and other diseases of the nervous system; Z79.51 Long term (current) use of inhaled steroids; Z88.5 Allergy status to narcotic agent; Z79.84 Long term (current) use of oral hypoglycemic drugs
CPT/HCPCS: 31500; 36415; 36569; 36600; 71045; 74018; 76700; 80048; 80053; 80202; 80307; 80320; 81001; 82040; 82805; 82962; 83036; 83735; 84100; 84132; 84443; 84478; 85007; 85025; 85027; 85610; 85730; 86704; 86706; 86708; 86803; 87070; 87081; 87086; 87205; 87340; 87804; 87880; 92610; 93005; 93306; 93971; 94002; 94003; 94640; 94644; 94645; 96374; 97110; 97116; 97163; 97530; 99291; A4618; G0378; J1815; J1956; J2250; J2543; J2704; J3480; J3490; J7060

== ENCOUNTER 2020-04-26 06:54 | Inpatient (IN) | payer MEDICAID ==
[~2020-04-26] VITALS: Ht 160 cm; Wt 77.6 kg
[2020-04-26] MEDS ORDERED: ALBUTEROL SULF 2.5 MG/0.5ML(0.5%) NEB SOLN ONE (07:10)
[2020-04-26] MEDS ORDERED: IPRATROPIUM BROM 0.5 MG/2.5ML INH SOL ONE (07:10)
[2020-04-26 07:29] LABS: Basophils # (auto) 0.1 10 ^3/uL (0-0.2); Basophils % (auto) 1.1 % (0.0-2.0); Eosinophils # (auto) 0.5 10 ^3/uL (0-0.8); Eosinophils % (auto) 6.3 % (0.0-7.0); Hematocrit 44.5 % (36.0-46.0); Hemoglobin 15.1 g/dL (12.2-16.2); Lymphocytes # (auto) 2.4 10 ^3/uL (0.4-5.4); Lymphocytes % (auto) 32.1 % (10.0-50.0); Mean Corpuscular Hemoglobin 32.2 pg (28.0-32.0); Mean Corpuscular Volume 94.9 fL (80.0-100.0); Monocytes # (auto) 0.8 10 ^3/uL (0-1.3); Monocytes % (auto) 10.3 % (0.0-12.0); Neutrophils # (auto) 3.7 10 ^3/uL (1.6-8.6); Neutrophils % (auto) 50.2 % (37.0-80.0); Nucleated Red Blood Cells % 0.1 %; Platelet Count (auto) 377 10^3/uL (140-450); Red Blood Cells 4.69 10^6/uL (4.0-5.20); White Blood Cell 7.4 10^3/uL (4.4-10.8)
[2020-04-26] MEDS ORDERED: SODIUM CHLORIDE 0.9% 1,000 ML IV ONE (07:30)
[2020-04-26] MEDS ORDERED: methylPREDNISolone SOD SUCC 125 MG/2 ML VL IV ONE (07:30)
[2020-04-26 07:56] LABS: INR 0.98 (0.9-1.15); Partial Thromboplastin Time 22.7 sec (23.0-31.2)
[2020-04-26 07:59] LABS: Albumin 3.7 g/dL (3.4-5.0); Anion Gap 7 (5-15); Blood Urea Nitrogen 15 mg/dL (7-18); Calcium 9.7 mg/dL (8.5-10.1); Carbon Dioxide 24 mmol/L (21-32); Chloride 107 mmol/L (98-107); Glucose 264 mg/dL (74-106); Sodium 138 mmol/L (136-145)
[2020-04-26 08:05] LABS: Alanine Aminotransferase 23 U/L (13-56); Alkaline Phosphatase 107 U/L (45-117); Aspartate Aminotransferase 21 U/L (15-37); BUN/Creatinine Ratio 13.6; Bilirubin, Total 0.7 mg/dL (0.2-1.0); GFR African American 65 mL/min; GFR Non-African American 54 mL/min; Total Protein 7.6 g/dL (6.4-8.2)
[2020-04-26 11:22] LABS: Urine Bacteria NONE SEEN /hpf (None Seen); Urine Blood Negative /uL (Negative); Urine Hyaline Cast FEW /lpf (0 - 2); Urine Mucus FEW (None Seen); Urine Specific Gravity 1.031 (1.001-1.035); Urine WBC 4 /hpf (0 - 5)
[2020-04-26] MEDS ORDERED: HYDROcodone-ACET 5/325MG TAB PO PRN (11:30)
[2020-04-26] MEDS ORDERED: ONDANSETRON HCL 4 MG/2 ML VIAL IV PRN (11:30)
[2020-04-26] MEDS ORDERED: ACETAMINOPHEN 500 MG TAB PO PRN (11:30)
[2020-04-26] MEDS ORDERED: MORPHINE SULF INJ 2 MG/ML SYRINGE 1ML IV PRN (11:30)
[2020-04-26] MEDS ORDERED: NITROGLYCERIN 0.4 MG SL TAB SL PRN (11:30)
[2020-04-26 14:52] VITALS: BP 118/60
[2020-04-26] MEDS: IPRATROPIUM BROM 0.5 MG/2.5ML INH SOL NEB SCH ×3 (15:26→22:38)
[2020-04-26] MEDS: ALBUTEROL SULF 2.5 MG/0.5ML(0.5%) NEB SOLN NEB SCH ×3 (15:31→22:38)
[2020-04-26 22:00] VITALS: BP 115/59
[2020-04-26] MEDS: methylPREDNISolone SOD SUCC 40 MG/ML VL IV SCH (22:28)
[2020-04-26] MEDS: BUDESONIDE (INHALATION) 0.5 MG/2 ML NEB NEB SCH (22:38)
[2020-04-26 23:22] LABS: Alcohol, Urine < 3.0 mg/dL (0-10); Amphetamine Screen, Urine NEGATIVE (NEGATIVE); Barbiturate Scree,Urine NEGATIVE (NEGATIVE); Benzodiazephine Screen, Urine NEGATIVE (NEGATIVE); Cannabinoid Screen, Urine POSITIVE (NEGATIVE); Cocaine Screen, Urine NEGATIVE (NEGATIVE); Opiate Scree,Urine NEGATIVE (NEGATIVE); Phencyclidine Screen, Urine NEGATIVE (NEGATIVE)
[2020-04-27 05:00] VITALS: BP 109/44
[2020-04-27 05:56] LABS: Basophils # (auto) 0 10 ^3/uL (0-0.2); Basophils % (auto) 0.3 % (0.0-2.0); Eosinophils # (auto) 0 10 ^3/uL (0-0.8); Hematocrit 40.7 % (36.0-46.0); Hemoglobin 13.7 g/dL (12.2-16.2); Lymphocytes # (auto) 0.4 10 ^3/uL (0.4-5.4); Mean Corpuscular Hemoglobin 31.6 pg (28.0-32.0); Mean Corpuscular Hgb Conc. 33.7 g/dL (32.0-36.0); Mean Corpuscular Volume 93.7 fL (80.0-100.0); Monocytes # (auto) 0.2 10 ^3/uL (0-1.3); Monocytes % (auto) 1.3 % (0.0-12.0); Neutrophils # (auto) 10.7 10 ^3/uL (1.6-8.6); Neutrophils % (auto) 94.4 % (37.0-80.0); Platelet Count (auto) 315 10^3/uL (140-450); Red Blood Cells 4.35 10^6/uL (4.0-5.20); Red Cell Distribution Width 13.8 % (11.8-14.3); White Blood Cell 11.4 10^3/uL (4.4-10.8)
[2020-04-27 06:12] LABS: Potassium 4.4 mmol/L (3.5-5.1)
[2020-04-27] MEDS: IPRATROPIUM BROM 0.5 MG/2.5ML INH SOL NEB SCH ×5 (07:10→22:36)
[2020-04-27] MEDS: BUDESONIDE (INHALATION) 0.5 MG/2 ML NEB NEB SCH ×2 (07:11→22:36)
[2020-04-27] MEDS: ALBUTEROL SULF 2.5 MG/0.5ML(0.5%) NEB SOLN NEB SCH ×2 (07:11→10:04)
[2020-04-27 09:00] VITALS: BP 114/76
[2020-04-27] MEDS: FAMOTIDINE 20 MG TAB PO SCH (09:27)
[2020-04-27] MEDS: methylPREDNISolone SOD SUCC 40 MG/ML VL IV SCH ×2 (09:28→22:00)
[2020-04-27] MEDS: cefTRIAXone 1GM/50ML D5W 50 ML IV SCH (09:28)
[2020-04-27] MEDS ORDERED: AZITHROMYCIN 500MG/ 250ML 250 ML IV SCH (10:00)
[2020-04-27 13:00] VITALS: BP 107/63
[2020-04-27] MEDS ORDERED: FUROSEMIDE 20 MG/2 ML VIAL IV ONE (15:15)
[2020-04-27 17:00] VITALS: BP 112/73
[2020-04-27] MEDS: LEVALBUTEROL HCL 1.25 MG/3 ML NEB NEB SCH ×3 (18:22→22:36)
[2020-04-27 22:07] VITALS: BP 139/89
[2020-04-28] MEDS: LEVALBUTEROL HCL 1.25 MG/3 ML NEB NEB SCH ×3 (02:48→11:06)
[2020-04-28 05:00] VITALS: BP 131/76
[2020-04-28] MEDS: IPRATROPIUM BROM 0.5 MG/2.5ML INH SOL NEB SCH ×2 (06:03→10:00)
[2020-04-28 09:00] VITALS: BP 120/74
[2020-04-28] MEDS: FAMOTIDINE 20 MG TAB PO SCH (09:00)
[2020-04-28] MEDS: methylPREDNISolone SOD SUCC 40 MG/ML VL IV SCH (09:00)
[2020-04-28] MEDS: cefTRIAXone 1GM/50ML D5W 50 ML IV SCH (09:00)
[2020-04-28] MEDS ORDERED: FOLI1TAB6 PO (09:05)
[2020-04-28] MEDS ORDERED: AML5T PO (09:06)
[2020-04-28] MEDS ORDERED: METF-370 PO (09:07)
[2020-04-28] MEDS: BUDESONIDE (INHALATION) 0.5 MG/2 ML NEB NEB SCH (09:35)
[2020-04-28] MEDS ORDERED: AZITHROMYCIN 250 MG TAB PO SCH (10:00)
[2020-04-28 13:00] VITALS: BP 145/78
[2020-04-28] MEDS ORDERED: METH4PAK PO (13:34)
[2020-04-28] MEDS ORDERED: DOXY-340 PO (13:34)
[2020-04-28] MEDS ORDERED: FLUT110A INH (13:34)
[2020-04-28] MEDS ORDERED: FURO40TA4 PO (13:34)
[2020-04-28] MEDS ORDERED: PANT40TA2 PO (13:34)
[2020-04-28] MEDS ORDERED: POTA10TA51 PO (13:34)
[2020-04-28 13:58] VITALS: BP 107/63
== END 2020-04-28 14:39 | disposition home or self-care (01) | DRG 133 ==
LOC: ER 06:54 → EDBD 06:54 → TELE 06:55 → TELE-CENTR 18:10
PROVIDERS: ADMIT Nurse Practitioner Acute Care; ATTEND Internal Medicine
PROC: 5A09357 Assistance with Respiratory Ventilation, Less than 24 Consecutive Hours, Continuous Positive Airway Pressure (ICD-10-PCS; principal; 2020-04-26)
DX: J96.01 Acute respiratory failure with hypoxia (principal); I50.33 Acute on chronic diastolic (congestive) heart failure; J44.1 Chronic obstructive pulmonary disease with (acute) exacerbation; I13.0 Hypertensive heart and chronic kidney disease with heart failure and stage 1 through stage 4 chronic kidney disease, or unspecified chronic kidney disease; E11.65 Type 2 diabetes mellitus with hyperglycemia; E87.2 Acidosis; E11.22 Type 2 diabetes mellitus with diabetic chronic kidney disease; Z20.822 Contact with and (suspected) exposure to COVID-19; I15.2 Hypertension secondary to endocrine disorders; E03.9 Hypothyroidism, unspecified; E66.9 Obesity, unspecified; F17.210 Nicotine dependence, cigarettes, uncomplicated; N18.31 Chronic kidney disease, stage 3a; Z88.6 Allergy status to analgesic agent; Z68.29 Body mass index [BMI] 29.0-29.9, adult; Z79.51 Long term (current) use of inhaled steroids; Z80.0 Family history of malignant neoplasm of digestive organs; Z82.0 Family history of epilepsy and other diseases of the nervous system
CPT/HCPCS: 36415; 36600; 71045; 80048; 80053; 80307; 81001; 82805; 83735; 83880; 84443; 84484; 85025; 85379; 85610; 85730; 87426; 87804; 93005; 94640; 94660; 96361; 96374; G0378; J0696

== ENCOUNTER 2022-07-09 15:49 | Emergency (ER) | payer MEDICAID ==
[~2022-07-09] VITALS: Ht 162.6 cm; Wt 67.8 kg
[~2022-07-09 15:49] MED LIST changes: +AML5T PO; +DOXY1CAP57 PO; +FLUT110A INH; +FOLI-119 PO; +FURO40TA4 PO; +METF-370 PO; +METH4PAK PO; +PANT40TA2 PO; +POTA10TA51 PO
[2022-07-09 16:10] VITALS: BP 144/91
[2022-07-09] MEDS ORDERED: IPRATROPIUM BROM 0.5 MG/2.5ML INH SOL HHN ONE (16:30)
[2022-07-09] MEDS ORDERED: ALBUTEROL SULF 2.5 MG/0.5ML(0.5%) NEB SOLN HHN ONE (16:30)
[2022-07-09 17:04] LABS: Basophils # (auto) 0.1 10 ^3/uL (0-0.2); Basophils % (auto) 0.7 % (0.0-2.0); Eosinophils # (auto) 0.2 10 ^3/uL (0-0.8); Hematocrit 44.3 % (36.0-46.0); Lymphocytes # (auto) 1.8 10 ^3/uL (0.4-5.4); Mean Corpuscular Hemoglobin 32.1 pg (28.0-32.0); Mean Corpuscular Hgb Conc. 33.9 g/dL (32.0-36.0); Mean Corpuscular Volume 94.9 fL (80.0-100.0); Monocytes # (auto) 0.6 10 ^3/uL (0-1.3); Neutrophils # (auto) 4.3 10 ^3/uL (1.6-8.6); Neutrophils % (auto) 61.3 % (37.0-80.0); Nucleated Red Blood Cells % 0.1 %; Red Blood Cells 4.67 10^6/uL (4.0-5.20); Red Cell Distribution Width 15.4 % (11.8-14.3); White Blood Cell 7.1 10^3/uL (4.4-10.8)
[2022-07-09 17:23] LABS: Calcium 9.8 mg/dL (8.5-10.1); Potassium 4.8 mmol/L (3.5-5.1)
[2022-07-09 17:30] LABS: Albumin 4.1 g/dL (3.4-5.0); BUN/Creatinine Ratio 9.3 (10.0-20.0); Bilirubin, Total 0.7 mg/dL (0.2-1.0); Total Protein 6.8 g/dL (6.4-8.2)
[2022-07-09] MEDS ORDERED: DexAMETHasone SOD PHOS 10MG/1ML VIAL INJ IM ONE (18:15)
[2022-07-09] MEDS ORDERED: PRED20TA2 PO (19:45)
[2022-07-09] MEDS ORDERED: AZITTAB PO (19:45)
== END 2022-07-09 20:41 | disposition home or self-care (01) ==
LOC: ER 15:58
DX: J45.901 Unspecified asthma with (acute) exacerbation (principal); I10 Essential (primary) hypertension; F17.210 Nicotine dependence, cigarettes, uncomplicated
CPT/HCPCS: 36415; 71045; 80053; 83880; 84484; 85025; 93005; 94640; 96372; 99285; J1100; J7644

== ENCOUNTER 2022-07-11 16:07 | Emergency (ER) | payer MEDICAID ==
[~2022-07-11] VITALS: Ht 162.6 cm; Wt 67.9 kg
[~2022-07-11 16:07] MED LIST changes: +AZITTAB PO; +PRED20TA2 PO
[2022-07-11] MEDS ORDERED: IPRATROPIUM BROM 0.5 MG/2.5ML INH SOL NEB ONE (16:30)
[2022-07-11] MEDS ORDERED: ALBUTEROL SULF 2.5 MG/0.5ML(0.5%) NEB SOLN NEB ONE (16:30)
[2022-07-11 17:03] LABS: Basophils # (auto) 0 10 ^3/uL (0-0.2); Basophils % (auto) 0.2 % (0.0-2.0); Eosinophils # (auto) 0 10 ^3/uL (0-0.8); Hematocrit 44.2 % (36.0-46.0); Hemoglobin 15.1 g/dL (12.2-16.2); Lymphocytes # (auto) 0.5 10 ^3/uL (0.4-5.4); Lymphocytes % (auto) 8.5 % (10.0-50.0); Mean Corpuscular Hemoglobin 32.2 pg (28.0-32.0); Mean Corpuscular Hgb Conc. 34.1 g/dL (32.0-36.0); Mean Corpuscular Volume 94.5 fL (80.0-100.0); Monocytes # (auto) 0.1 10 ^3/uL (0-1.3); Monocytes % (auto) 1.8 % (0.0-12.0); Neutrophils # (auto) 5.7 10 ^3/uL (1.6-8.6); Neutrophils % (auto) 89.5 % (37.0-80.0); Nucleated Red Blood Cells % 0.1 %; Red Blood Cells 4.68 10^6/uL (4.0-5.20); Red Cell Distribution Width 15.6 % (11.8-14.3); White Blood Cell 6.3 10^3/uL (4.4-10.8)
[2022-07-11 17:14] LABS: Albumin 4.3 g/dL (3.4-5.0); Calcium 9.3 mg/dL (8.5-10.1); Potassium 4.7 mmol/L (3.5-5.1)
[2022-07-11 17:19] LABS: BUN/Creatinine Ratio 11.4 (10.0-20.0); Bilirubin, Total 0.7 mg/dL (0.2-1.0); Total Protein 7.7 g/dL (6.4-8.2)
[2022-07-11 18:40] VITALS: BP 132/76
== END 2022-07-11 18:43 | disposition home or self-care (01) ==
LOC: ER 16:07
DX: J44.1 Chronic obstructive pulmonary disease with (acute) exacerbation (principal); R19.7 Diarrhea, unspecified; F17.210 Nicotine dependence, cigarettes, uncomplicated; I10 Essential (primary) hypertension; Z86.73 Personal history of transient ischemic attack (TIA), and cerebral infarction without residual deficits; Z98.890 Other specified postprocedural states
CPT/HCPCS: 36415; 71045; 80053; 85025; 94640; 99284; J7644

== ENCOUNTER 2022-07-14 06:41 | Emergency (ER) | payer MEDICAID ==
[~2022-07-14] VITALS: Ht 162.6 cm; Wt 70.0 kg
[2022-07-14 07:14] LABS: Basophils # (auto) 0.1 10 ^3/uL (0-0.2); Basophils % (auto) 0.7 % (0.0-2.0); Eosinophils # (auto) 0 10 ^3/uL (0-0.8); Eosinophils % (auto) 0.4 % (0.0-7.0); Hematocrit 44.2 % (36.0-46.0); Hemoglobin 14.6 g/dL (12.2-16.2); Lymphocytes # (auto) 2.7 10 ^3/uL (0.4-5.4); Lymphocytes % (auto) 22.9 % (10.0-50.0); Mean Corpuscular Hemoglobin 31.3 pg (28.0-32.0); Mean Corpuscular Hgb Conc. 33.1 g/dL (32.0-36.0); Mean Corpuscular Volume 94.5 fL (80.0-100.0); Monocytes # (auto) 0.8 10 ^3/uL (0-1.3); Monocytes % (auto) 7.2 % (0.0-12.0); Neutrophils % (auto) 68.8 % (37.0-80.0); Nucleated Red Blood Cells % 0.1 %; Red Blood Cells 4.67 10^6/uL (4.0-5.20); Red Cell Distribution Width 15.6 % (11.8-14.3); White Blood Cell 11.7 10^3/uL (4.4-10.8)
[2022-07-14 07:29] LABS: Albumin 3.9 g/dL (3.4-5.0); Calcium 9.2 mg/dL (8.5-10.1); Potassium 3.8 mmol/L (3.5-5.1)
[2022-07-14 07:33] LABS: Bilirubin, Total 0.7 mg/dL (0.2-1.0); Total Protein 6.6 g/dL (6.4-8.2)
[2022-07-14 08:45] VITALS: BP 162/82
== END 2022-07-14 08:46 | disposition home or self-care (01) ==
LOC: ER 06:41 → EDBD 06:41 → ER 08:46
DX: J44.1 Chronic obstructive pulmonary disease with (acute) exacerbation (principal); D72.829 Elevated white blood cell count, unspecified; I10 Essential (primary) hypertension; F17.210 Nicotine dependence, cigarettes, uncomplicated; Z86.73 Personal history of transient ischemic attack (TIA), and cerebral infarction without residual deficits; Z88.1 Allergy status to other antibiotic agents
CPT/HCPCS: 36415; 71045; 80053; 83880; 84484; 85025; 93005

== ENCOUNTER 2022-07-17 05:42 | Emergency (ER) | payer MEDICAID ==
[~2022-07-17] VITALS: Ht 162.6 cm; Wt 71.4 kg
[2022-07-17 05:50] VITALS: BP 152/81
[2022-07-17] MEDS ORDERED: IPRATROPIUM BROM 0.5 MG/2.5ML INH SOL NEB ONE (06:45)
[2022-07-17] MEDS ORDERED: methylPREDNISolone SOD SUCC 125 MG/2 ML VL IV ONE (06:45)
[2022-07-17] MEDS ORDERED: ALBUTEROL SULF 2.5 MG/0.5ML(0.5%) NEB SOLN NEB ONE (06:45)
[2022-07-17] MEDS ORDERED: cefTRIAXone 1GM/50ML D5W 50 ML IV ONE (06:45)
[2022-07-17 07:20] LABS: Basophils # (auto) 0.1 10 ^3/uL (0-0.2); Basophils % (auto) 0.7 % (0.0-2.0); Eosinophils # (auto) 0.4 10 ^3/uL (0-0.8); Eosinophils % (auto) 2.9 % (0.0-7.0); Hematocrit 46.1 % (36.0-46.0); Hemoglobin 15.7 g/dL (12.2-16.2); Lymphocytes % (auto) 15.7 % (10.0-50.0); Mean Corpuscular Hemoglobin 32.2 pg (28.0-32.0); Mean Corpuscular Volume 94.7 fL (80.0-100.0); Monocytes # (auto) 0.8 10 ^3/uL (0-1.3); Monocytes % (auto) 6.4 % (0.0-12.0); Neutrophils # (auto) 9.6 10 ^3/uL (1.6-8.6); Neutrophils % (auto) 74.3 % (37.0-80.0); Red Blood Cells 4.87 10^6/uL (4.0-5.20); Red Cell Distribution Width 15.4 % (11.8-14.3); White Blood Cell 12.9 10^3/uL (4.4-10.8)
[2022-07-17 07:35] LABS: Albumin 3.9 g/dL (3.4-5.0); BUN/Creatinine Ratio 10.3 (10.0-20.0); Calcium 9.7 mg/dL (8.5-10.1); Potassium 3.9 mmol/L (3.5-5.1)
[2022-07-17 07:38] LABS: Bilirubin, Total 0.9 mg/dL (0.2-1.0); Total Protein 7.1 g/dL (6.4-8.2)
[2022-07-17] MEDS ORDERED: PRED20TA2 PO (08:08)
[2022-07-17] MEDS ORDERED: LEVO500T91 PO (08:08)
[2022-07-22] MEDS ORDERED: DOXY-286 PO (02:11)
[2022-07-22] MEDS ORDERED: ALBUAER3 IN (02:11)
[2022-07-22] MEDS ORDERED: METH4PAK PO (02:11)
== END 2022-07-17 12:08 | disposition left against medical advice (07) ==
LOC: ER 05:42
DX: J44.1 Chronic obstructive pulmonary disease with (acute) exacerbation (principal); I10 Essential (primary) hypertension; F17.210 Nicotine dependence, cigarettes, uncomplicated; Z86.73 Personal history of transient ischemic attack (TIA), and cerebral infarction without residual deficits; Z98.890 Other specified postprocedural states
CPT/HCPCS: 36415; 71045; 80053; 83880; 84484; 85025; 93005; 94640; 99285; J7644; J0696

== ENCOUNTER 2022-07-19 15:36 | Emergency (ER) | payer MEDICAID ==
[~2022-07-19] VITALS: Ht 162.6 cm; Wt 71.3 kg
[~2022-07-19 15:36] MED LIST changes: +LEVO500T91 PO
[2022-07-19 15:40] VITALS: BP 137/75
[2022-07-19] MEDS ORDERED: ALBUTEROL SULF 2.5 MG/0.5ML(0.5%) NEB SOLN NEB ONE (16:00)
[2022-07-19] MEDS ORDERED: IPRATROPIUM BROM 0.5 MG/2.5ML INH SOL NEB ONE (16:00)
[2022-07-19 16:38] LABS: Basophils # (auto) 0 10 ^3/uL (0-0.2); Basophils % (auto) 0.2 % (0.0-2.0); Eosinophils # (auto) 0 10 ^3/uL (0-0.8); Hematocrit 43.8 % (36.0-46.0); Hemoglobin 14.5 g/dL (12.2-16.2); Lymphocytes # (auto) 1.6 10 ^3/uL (0.4-5.4); Lymphocytes % (auto) 10.8 % (10.0-50.0); Mean Corpuscular Hemoglobin 31.3 pg (28.0-32.0); Mean Corpuscular Hgb Conc. 33.2 g/dL (32.0-36.0); Mean Corpuscular Volume 94.4 fL (80.0-100.0); Monocytes # (auto) 1.1 10 ^3/uL (0-1.3); Neutrophils # (auto) 12.5 10 ^3/uL (1.6-8.6); Nucleated Red Blood Cells % 0.1 %; Red Blood Cells 4.64 10^6/uL (4.0-5.20); Red Cell Distribution Width 15.2 % (11.8-14.3); White Blood Cell 15.3 10^3/uL (4.4-10.8)
[2022-07-19 16:53] LABS: Albumin 4.2 g/dL (3.4-5.0); Magnesium 2.2 mg/dL (1.6-2.6); Potassium 4.6 mmol/L (3.5-5.1)
[2022-07-19 16:57] LABS: BUN/Creatinine Ratio 11.4 (10.0-20.0); Bilirubin, Total 0.9 mg/dL (0.2-1.0); Total Protein 7.1 g/dL (6.4-8.2)
[2022-07-19 17:13] LABS: INR 0.93 (0.9-1.15); Partial Thromboplastin Time 23.4 sec (24.6-33.4)
[2022-07-19 17:32] LABS: Urine Bacteria NONE SEEN /hpf (None Seen); Urine Blood Negative /uL (Negative); Urine Hyaline Cast FEW /lpf (0 - 2); Urine Mucus FEW (None Seen); Urine Specific Gravity 1.035 (1.001-1.035); Urine WBC 2 /hpf (0 - 5)
[2022-07-19] MEDS ORDERED: ZOFR4T PO (18:52)
[2022-07-19] MEDS ORDERED: BUDE1AER4 IN (18:52)
[2022-07-22] MEDS ORDERED: ALBUAER3 IN (02:11)
[2022-07-22] MEDS ORDERED: METH4PAK PO (02:11)
[2022-07-22] MEDS ORDERED: DOXY-286 PO (02:11)
== END 2022-07-19 21:03 | disposition home or self-care (01) ==
LOC: ER 15:36
DX: J44.1 Chronic obstructive pulmonary disease with (acute) exacerbation (principal); D72.829 Elevated white blood cell count, unspecified; F17.210 Nicotine dependence, cigarettes, uncomplicated; I10 Essential (primary) hypertension; Z86.73 Personal history of transient ischemic attack (TIA), and cerebral infarction without residual deficits; Z98.890 Other specified postprocedural states; Z88.5 Allergy status to narcotic agent
CPT/HCPCS: 36415; 71045; 80053; 81001; 83735; 83880; 84484; 85025; 85610; 85730; 93005; 94640; 99285; J7644

== ENCOUNTER 2022-07-21 21:02 | Emergency (ER) | payer MEDICAID ==
[~2022-07-21] VITALS: Ht 162.6 cm; Wt 71.5 kg
[~2022-07-21 21:02] MED LIST changes: +BUDE1AER4 IN; +ZOFR4T PO
[2022-07-21 22:26] LABS: Basophils # (auto) 0.1 10 ^3/uL (0-0.2); Basophils % (auto) 0.9 % (0.0-2.0); Eosinophils # (auto) 0.1 10 ^3/uL (0-0.8); Eosinophils % (auto) 0.5 % (0.0-7.0); Hematocrit 38.7 % (36.0-46.0); Lymphocytes # (auto) 1.9 10 ^3/uL (0.4-5.4); Lymphocytes % (auto) 15.5 % (10.0-50.0); Mean Corpuscular Hemoglobin 31.9 pg (28.0-32.0); Mean Corpuscular Hgb Conc. 33.7 g/dL (32.0-36.0); Mean Corpuscular Volume 94.9 fL (80.0-100.0); Monocytes % (auto) 7.9 % (0.0-12.0); Neutrophils # (auto) 9.3 10 ^3/uL (1.6-8.6); Neutrophils % (auto) 75.2 % (37.0-80.0); Nucleated Red Blood Cells % 0.1 %; Red Blood Cells 4.08 10^6/uL (4.0-5.20); Red Cell Distribution Width 15.2 % (11.8-14.3); White Blood Cell 12.3 10^3/uL (4.4-10.8)
[2022-07-21 22:42] LABS: INR 0.92 (0.9-1.15)
[2022-07-21 22:45] LABS: Albumin 3.4 g/dL (3.4-5.0); BUN/Creatinine Ratio 11.8 (10.0-20.0); Calcium 9.4 mg/dL (8.5-10.1); Potassium 3.8 mmol/L (3.5-5.1)
[2022-07-21 22:49] LABS: Bilirubin, Total 0.5 mg/dL (0.2-1.0); Total Protein 6.2 g/dL (6.4-8.2)
[2022-07-22] MEDS ORDERED: DOXY-286 PO (02:11)
[2022-07-22] MEDS ORDERED: ALBUAER3 IN (02:11)
[2022-07-22] MEDS ORDERED: METH4PAK PO (02:11)
[2022-07-22] MEDS ORDERED: IPRATROPIUM BROM 0.5 MG/2.5ML INH SOL NEB ONE (02:15)
[2022-07-22] MEDS ORDERED: ALBUTEROL SULF 2.5 MG/0.5ML(0.5%) NEB SOLN NEB ONE (02:15)
[2022-07-22] MEDS ORDERED: BUDESONIDE (INHALATION) 0.5 MG/2 ML NEB NEB ONE (02:15)
[2022-07-22] MEDS ORDERED: levoFLOXacin 500 MG TAB PO ONE (02:15)
[2022-07-22 03:00] VITALS: BP 151/76
== END 2022-07-21 23:59 | disposition home or self-care (01) ==
LOC: ER 21:04
DX: J44.1 Chronic obstructive pulmonary disease with (acute) exacerbation (principal); J45.909 Unspecified asthma, uncomplicated; I10 Essential (primary) hypertension; F17.210 Nicotine dependence, cigarettes, uncomplicated; Z86.73 Personal history of transient ischemic attack (TIA), and cerebral infarction without residual deficits; Z90.89 Acquired absence of other organs; Z98.890 Other specified postprocedural states
CPT/HCPCS: 36415; 71046; 80053; 83605; 83880; 84484; 85025; 85379; 85610; 85730; 87040; 94640